=== PATIENT | female | born 1985 | race Asian ===

== ENCOUNTER 2023-08-09 05:40 | Inpatient (IN) ==
--- NOTE | 2023-07-30 10:35 | Anesthesiology Consultation ---
Date of Service July 30, 2023 Assessment & Plan (1) Encounter for pre-operative examination: - Per mechanical operator on 07/30/23: No known infectious disease contacts, current infectious disease symptoms in past 10 days or COVID positive test result in the past 30 days. Chart Review Chart Review: entry level initiated History Surgery Operation Date: 08/09/23 09:00 Proposed Procedures p Section (Delivery of Baby Through Abdominal Incision) - Clau Desai MD, FACOG Height/Weight Height: 5 ft 4 in Weight: 79.379 kg Allergies Allergy/AdvReac Type Severity Reaction Status Date / Time No Known Allergies Allergy Verified 07/30/23 10:07 Medications Home Medications Medication Instructions Recorded Confirmed Last Taken prenat.vits,jacqueline,[id number] 1 tab PO DAILY 06/05/22 07/30/23 07/07/23 cholecalciferol (vitamin D3) 1 tab PO UD 12/31/22 07/30/23 Unknown acetone (urine) test (Ketone Urine #50 ea 04/29/23 07/29/23 Unknown Test strips) blood sugar diagnostic (OneTouch #150 ea 04/29/23 07/29/23 Unknown Verio test strips) blood-glucose meter (OneTouch #1 ea 04/29/23 07/29/23 Unknown Verio Reflect Meter) lancets 33 gauge (OneTouch Delica #150 ea 04/29/23 07/29/23 Unknown Plus Lancet) aspirin 81 mg chewable tablet 81 mg PO DAILY 05/13/23 07/30/23 07/07/23 pen needle, diabetic 32 gauge x #100 ea 05/16/23 07/29/23 Unknown 5/32" (BD Ultra-Fine Lanie Pen Needle) insulin aspart U-100 100 unit/mL See Rx Instructions subcut TID #15 05/27/23 07/30/23 Unknown (3 mL) subcutaneous pen (Novolog mL FlexPen U-100 Insulin aspart) calcium carbonate [Tums] 1 tab PO DIRECTED PRN Acid 06/10/23 07/30/23 Unknown Reflux famotidine [Pepcid] 1 tab PO DAILY PRN Acid Reflux 06/10/23 07/30/23 Unknown ferrous sulfate [Iron (ferrous 25 mg PO UD 06/10/23 07/30/23 Unknown sulfate)] insulin NPH isoph U-100 human 100 20 unit subcut QPM 07/01/23 07/30/23 07/06/23 unit/mL (3 mL) subcutaneous pen (Novolin N FlexPen) Past Medical History Medical History Acid reflux Dichorionic diamniotic twin Gestational diabetes Past Family History Family History Mother Premature labor Other Anemia Diabetes Gestational diabetes Heart disease No family history of adverse response to anesthesia Denies family history of Ovarian cancer Breast cancer Colorectal cancer Past Surgical History Surgical History No history of previous surgery S/P dilation and curettage Social History Smoking Status: Never smoker Do You Dip or Chew Tobacco: No Hx Alcohol Use: No Hx Substance Use: No substance use type: does not use
--- NOTE | 2023-08-08 17:55 | History & Physical Report ---
Date of Service August 08, 2023 Assessment & Plan (1) Dichorionic diamniotic twin : Plan: Di/DI twin gestation at 38 5/7 weeks presents for primary LTCS for breech presentation Twin A the procedure and it's risks were reviewed with the patient and her and all questions were answered to their satisfaction. History of Present Illness Primary Care Provider: NO PCP Patient is a 37 yo female EDC 08/17/23 with Di/Di twin gestation who presents at 38 5/7 weeks for primary LTCS because of breech presentation in both twins. complicated as well by AMA status and GDM on insulin. testing has been reassuring. Allergies Allergy/AdvReac Type Severity Reaction Status Date / Time No Known Allergies Allergy Verified 08/08/23 11:07 Home Medications Medication Instructions Recorded Confirmed Type prenat.vits,jacqueline,[id number] 1 tab PO DAILY 06/05/22 08/08/23 History cholecalciferol (vitamin D3) 1 tab PO UD 12/31/22 08/08/23 History acetone (urine) test (Ketone Urine #50 ea 04/29/23 08/08/23 Rx Test strips) blood sugar diagnostic (OneTouch #150 ea 04/29/23 08/08/23 Rx Verio test strips) blood-glucose meter (OneTouch #1 ea 04/29/23 08/08/23 Rx Verio Reflect Meter) lancets 33 gauge (OneTouch Delica #150 ea 04/29/23 08/08/23 Rx Plus Lancet) aspirin 81 mg chewable tablet 81 mg PO DAILY 05/13/23 08/08/23 History pen needle, diabetic 32 gauge x #100 ea 05/16/23 08/08/23 Rx 32" (BD Ultra-Fine Lanie Pen Needle) calcium carbonate [Tums] 1 tab PO DIRECTED PRN Acid 06/10/23 08/08/23 History Reflux famotidine [Pepcid] 1 tab PO DAILY PRN Acid Reflux 06/10/23 08/08/23 History ferrous sulfate [Iron (ferrous 25 mg PO UD 06/10/23 08/08/23 History sulfate)] insulin NPH isoph U-100 human 100 15 unit subcut QPM 07/01/23 08/08/23 History unit/mL (3 mL) subcutaneous pen (Novolin N FlexPen) Patient History Medical History Acid reflux Dichorionic diamniotic twin Gestational diabetes Surgical History No history of previous surgery S/P dilation and curettage Family History Mother Premature labor Other Anemia Diabetes Gestational diabetes Heart disease No family history of adverse response to anesthesia Denies family history of Ovarian cancer Breast cancer Colorectal cancer Social History Smoking Status: Never smoker Second Hand Exposure: No; Do You Dip or Chew Tobacco: No; Hx Alcohol Use: No Hx Substance Use: No Preferred Language: [place] Communication Ability: Effective Visual Impairment: No Limitations Steel Erecting Pusher Required: No Beliefs That Will Affect Care: None marital status: marital status details: Itz ([phone] Current Living Situation: Spouse Current Living Situation Comment: lives with spouse, no pets. current occupational status: employed current occupation: Post researcher at [employer] Feels Safe at Home: Yes Assistive Devices: Glasses Review of Systems All systems reviewed & are unremarkable except as noted in HPI & below Physical Exam Constitutional: WD/WN, vitals as above Respiratory: normal respiratory effort, lungs clear to auscultation Cardiovascular: RRR, no murmur, no edema Psychiatric: A+Ox3, euthymic affect Genitourinary: OB Exam Abdomen: + fundal height (42) and + breech (twin A breech/ twin B transverse head RUQ) OB Exam Monitor Tracing: + external FHT monitor used, + external uterine monitor used, + category I and + normal FHT variability Coding Level of Care Code None Diagnoses Dichorionic diamniotic twin O30.049
[2023-08-09] MEDS: LACTATED RINGER'S 1,000 ML IV SCH ×2 (06:20→09:52)
[2023-08-09 06:34] LABS: Basophils # (auto) 0.03 K/uL (0.00-0.20); Basophils % (auto) 0.5 %; Eosinophils # (auto) 0.07 K/uL (0.00-0.50); Eosinophils % (auto) 1.1 %; Hematocrit (blood only) 36.1 % (37.0-47.0); Immature Granulocytes # (auto) 0.02 K/uL (0.01-0.20); Immature Granulocytes % (auto) 0.3 %; Lymphocytes # (auto) 2.41 K/uL (1.20-3.40); Lymphocytes % (auto) 37.5 %; Mean Corpuscular Hemoglobin 32.3 pg (25.0-34.0); Mean Corpuscular Volume 89.6 fL (80.0-100.0); Mean Platelet Volume 11.7 fL (9.4-12.4); Monocytes # (auto) 0.51 K/uL (0.11-0.59); Monocytes % (auto) 7.9 %; Neutrophils # (auto) 3.38 K/uL (1.40-6.50); Neutrophils % (auto) 52.7 %; Platelet Count 202 K/uL (130-400); RDW Coefficient of Variation 12.9 % (11.5-14.5); RDW Standard Deviation 42.2 fL (36.4-46.3); Red Blood Count 4.03 M/uL (4.20-5.40); White Blood Count 6.42 K/ul (4.8-10.8)
[2023-08-09] MEDS: CITRIC ACID/SODIUM CITRATE 15 ML UDC PO SCH (07:19)
--- NOTE | 2023-08-09 07:21 | History & Physical Bridge Note ---
Date of Service August 09, 2023 History & Physical Bridge Note I have examined the patient, reviewed the History & Physical and in the interval since the performance of the History & Physical I have noted the following changes of clinical significance: no changes noted
[2023-08-09] MEDS ORDERED: MoRPHine SULFATE PF 1 MG/ML 10 ML AMP/VIAL ONE (07:24)
[2023-08-09] MEDS: ceFAZolin 2000MG 2,000 MG/15 ML SYR IV SCH (07:37)
[2023-08-09] MEDS ORDERED: ONDANSETRON INJ 2 MG/ML 2 ML VIAL ONE (08:10)
[2023-08-09] MEDS ORDERED: OXYTOCIN 10 UNITS/ML VIAL ONE ×3 (08:10→19:12)
[2023-08-09] MEDS ORDERED: PHENYLEPHRINE 100MCG/ML 10ML SYR IV ONE ×3 (08:10→19:12)
[2023-08-09] MEDS ORDERED: KETOROLAC 30 MG/ML VIAL ONE (08:32)
[2023-08-09] MEDS ORDERED: NALBUPHINE HCL 5 MG in SYRINGE 0 ML IV PRN (08:41)
[2023-08-09] MEDS ORDERED: MoRPHine SULFATE 2 MG/ML CARP IV PRN (08:41)
[2023-08-09] MEDS ORDERED: NALOXONE HCL 0.4 MG/1 ML VIAL/CARP IV PRN (08:41)
[2023-08-09] MEDS ORDERED: diphenhydrAMINE 50 MG/ML VIAL IV PRN (08:41)
[2023-08-09] MEDS ORDERED: ePHEDrine sulfate 50 MG/ML AMP IV PRN (08:41)
[2023-08-09] MEDS ORDERED: LACTATED RINGER'S 500 ML IV PRN (08:41)
[2023-08-09] MEDS ORDERED: KETOROLAC 30 MG/ML VIAL IV PRN (08:41)
[2023-08-09] MEDS ORDERED: MEPERIDINE HCL 25 MG/ML CARP/VIAL IV PRN (08:41)
[2023-08-09] MEDS ORDERED: NALOXONE HCL 0.08 MG in SYRINGE 1.8 ML IV PRN (08:41)
[2023-08-09] MEDS ORDERED: NALOXONE HCL 1 MG in SODIUM CHLORIDE 0.9% 1,000 ML IV PRN (08:41)
[2023-08-09] MEDS ORDERED: DC INTRASPINAL MORPHINE SCH (08:45)
[2023-08-09] MEDS ORDERED: NO NARCOTICS OR SEDATIVES SCH (08:45)
--- NOTE | 2023-08-09 08:51 | Post Operative Brief Note ---
PG Immediate Post Op with CF Date of Surgery August 09, 2023 Pre & Post Diagnosis Operation Date: 08/09/23 07:30 <No data on this case meets the specified criteria> di/di twin at 38 + weeks breech presentation twin A I identified the patient and participated in the time-out.: Yes Procedure Operation Date: 08/09/23 07:30 <No data on this case meets the specified criteria> primary low transverse section Surgeon Clau Desai MD, FACOG Gi Asst Sravani Lucero MD, Nehemiah Fritz MD Estimated Blood Loss 1,150 (QBL) Findings Consistent with Post-Op Diagnosis gravid twin uterus consistent with term , bilateral ovaries and tubes are normal Specimens Specimen Description: twin placenta Drains Son Catheter (to straight drainage- clear urine at end of the case) Anesthesia Type Spinal Complications none Disposition Accompanied Patient To Recovery: Yes Disposition: L&D
--- NOTE | 2023-08-09 09:19 | Operative Report ---
PG Post Operative Report Pre & Post Diagnosis Operation Date: 08/09/23 0 Pre-op diagnosis:DI/DI twin gestation at 38+weeks Twin A breech presentation Twin B transverse presentation Post-op diagnosis: same plus delivery of 2 viable male infants Twin A Apgars 8/9 Twin B Apgars 9/9 I identified the patient and participated in the time-out.: Yes Procedure Operation Date: 08/09/23 07:30 Primary low transverse section Surgeon Clau Desai MD, FACOG Animal Humane Agent Supervisor Sravani Lucero MD, Nehemiah Fritz MD Estimated Blood Loss 1,150 (QBL) Findings Consistent with Post-Op Diagnosis Gravid uterus consistent with twin at term, bilateral lateral ovaries will be tubes are also grossly normal. Specimens Di Di twin placenta for exam Drains Son catheter to straight drainage. Clear urine at the end of the case. Anesthesia Type Spinal Complications none Disposition Accompanied Patient To Recovery: Yes Disposition: L&D Indications Di Di twin at 38 5/7 weeks Twin A breech presentation Twin B transverse presentation Description of Procedure After the patient received adequate subarachnoid block she was prepped and draped in usual sterile fashion. Low transverse skin incision incision was made with the scalpel and carried to the fascia with the same scalpel. The fascial incision was then extended with Phillips scissors and the edges were grasped with Frederick clamps. The underlying rectus muscles bluntly sharply dissected off of the overlying fascia. The rectus muscles were already , and the underlying peritoneum was elevated and entered sharply. The bladder was then taken down off the anterior surface of the uterus and placed behind the bladder blade the lower uterine segment was entered with a scalpel and extended within cephalad and caudad stretching of the incision. Membranes for twin A were ruptured for copious amount of clear fluid. The was delivered from the double footling breech presentation along with moderate fundal pressure. The first male delivered easily and was vigorous and crying upon arrival. Cord was clamped and cut and the was handed off to Dr. Abdalla who was in attendance as big data admin. Membranes were ruptured for twin B -the fluid was clear. The infant was now in vertex presentation and with moderate fundal pressure was delivered easily. He was also vigorous crying and moving all 4 limbs. Cord was clamped and cut and twin B was also handed off to Dr. Abdalla. The placenta was were then expressed intact. Both cords were 3 vessels. The uterus was then exteriorized and covered with a clean lap sponge The uterine cavity was then explored and found to be free of any placental tissue or membranes. bleeding was controlled with dilute Pitocin and fundal massage. The uterus was then closed in 2 layers in a running locking imbricating manner with 0 Monocryl. Hemostasis was noted to be excellent. The posterior cul-de-sac was suctioned for a few clots. The decision was examined once more and continue to have excellent hemostasis. The uterus was then placed back inside the abdominal cavity gutters were explored and were found to be free of any clot or fluid. The rectus muscle were then brought together in the midline with individual stitches of 0 Monocryl. The fascia was closed in a running fashion with 0 Vicryl. After irrigating the subcutaneous layer, the skin edges were reapproximated in a subcuticular fashion with 4-0 Vicryl. Mother and infant's were doing well post delivery. I attest to the content of the Intraoperative Record and any orders documented therein. Any exceptions are noted below. OB Procedure Charges 52302
[2023-08-09] MEDS ORDERED: SODIUM CHLORIDE 0.9% 250 ML IV PRN ×5 (09:20→20:38)
[2023-08-09] MEDS ORDERED: PROMETHAZINE HCL 25 MG in SODIUM CHLORIDE 0.9% 50 ML IV PRN (09:31)
[2023-08-09] MEDS ORDERED: ONDANSETRON INJ 2 MG/ML 2 ML VIAL IV PRN (09:31)
[2023-08-09] MEDS ORDERED: BENZOCAINE 20% SPRY 85 APPLN/85 GM CAN EXT PRN (09:31)
[2023-08-09] MEDS ORDERED: HYDROCORTISONE ACETATE 25 MG SUPP PR PRN (09:31)
[2023-08-09] MEDS ORDERED: SENNA 8.6 MG TAB PO PRN (09:31)
[2023-08-09] MEDS ORDERED: MAGNESIUM HYDROXIDE SUSP 30 ML UDC PO PRN (09:31)
[2023-08-09] MEDS: MoRPHine SULFATE PF 1 MG/ML 10 ML AMP/VIAL INT SPINAL ONE (09:52)
[2023-08-09] MEDS: SODIUM CHLORIDE 0.9% 1,000 ML IV SCH (09:52)
[2023-08-09] MEDS: DIPHTHER/TETAN/PERTUS Vaccine (Tdap, Adol/Adult) 0.5mL IM ONE (09:52)
[2023-08-09 09:56] LABS: Basophils # (auto) 0.02 K/uL (0.00-0.20); Basophils % (auto) 0.2 %; Eosinophils # (auto) 0.05 K/uL (0.00-0.50); Eosinophils % (auto) 0.6 %; Hemoglobin 9.9 g/dl (12.0-16.0); Immature Granulocytes # (auto) 0.05 K/uL (0.01-0.20); Immature Granulocytes % (auto) 0.6 %; Lymphocytes # (auto) 1.83 K/uL (1.20-3.40); Lymphocytes % (auto) 20.2 %; Mean Corpuscular Hemoglobin 32.7 pg (25.0-34.0); Mean Corpuscular Hgb Conc 35.4 g/dL (32.0-36.0); Mean Corpuscular Volume 92.4 fL (80.0-100.0); Mean Platelet Volume 11.8 fL (9.4-12.4); Monocytes # (auto) 0.53 K/uL (0.11-0.59); Monocytes % (auto) 5.8 %; Neutrophils # (auto) 6.59 K/uL (1.40-6.50); Neutrophils % (auto) 72.6 %; Platelet Count 156 K/uL (130-400); RDW Coefficient of Variation 13.2 % (11.5-14.5); Red Blood Count 3.03 M/uL (4.20-5.40); White Blood Count 9.07 K/ul (4.8-10.8)
[2023-08-09] MEDS: OXYTOCIN 20 UNITS/LR 1,002 ML IV SCH (12:13)
[2023-08-09] MEDS: ACETAMINOPHEN 1,000 MG/100 ML VIAL IV PRN (13:39)
[2023-08-09] MEDS: ONDANSETRON INJ 2 MG/ML 2 ML VIAL IV PRN (13:39)
[2023-08-09] MEDS: miSOPROStoL 200 MCG TAB PR ONE (13:42)
[2023-08-09] MEDS: SIMETHICONE 80 MG CHEW PO SCH (14:12)
--- NOTE | 2023-08-09 15:55 | Anesthesiology Progress Note ---
Date of Service August 09, 2023 Anesthesia Post Procedure Vital Signs Vital Signs: Temp Pulse Resp BP Pulse Ox 08/09/23 15:29 126 H 100 08/09/23 15:21 123 H 99 08/09/23 15:16 145 H 100 08/09/23 15:11 129 H 99 08/09/23 15:08 131 H 90/60 L 08/09/23 15:06 144 H 100 08/09/23 15:01 144 H 99 08/09/23 14:56 138 H 97 08/09/23 14:51 140 H 99 08/09/23 14:46 141 H 99 08/09/23 14:41 147 H 100 08/09/23 14:36 125 H 100 08/09/23 14:31 128 H 100 08/09/23 14:26 127 H 100 08/09/23 14:21 126 H 100 08/09/23 14:16 127 H 99 08/09/23 14:11 134 H 99 08/09/23 14:08 122 H 117/81 08/09/23 14:06 132 H 100 08/09/23 14:01 122 H 100 08/09/23 13:56 98 08/09/23 13:56 116 H 08/09/23 13:56 113 H 93 08/09/23 13:51 117 H 99 08/09/23 13:46 90 08/09/23 13:46 116 H 08/09/23 13:46 118 H 92 08/09/23 13:41 127 H 98 08/09/23 13:38 121 H 99/62 L 08/09/23 13:36 119 H 98 08/09/23 13:32 123 H 106/69 08/09/23 13:31 125 H 97 08/09/23 13:26 115 H 97 08/09/23 13:21 129 H 99 08/09/23 13:16 116 H 96 08/09/23 13:11 118 H 99 08/09/23 13:09 111 H 98/61 L 08/09/23 13:06 117 H 97 08/09/23 13:01 121 H 98 08/09/23 12:56 122 H 99 08/09/23 12:51 126 H 100 08/09/23 12:46 123 H 98 08/09/23 12:41 123 H 99 08/09/23 12:38 118 H 128/79 05 12:36 131 H 98 08/09/23 12:31 132 H 98 08/09/23 12:26 135 H 99 08/09/23 12:21 135 H 98 08/09/23 12:16 134 H 98 08/09/23 12:11 133 H 97 08/09/23 12:09 148 H 124/86 08/09/23 12:06 136 H 97 08/09/23 12:01 149 H 99 08/09/23 11:56 154 H 97 08/09/23 11:51 142 H 99 08/09/23 11:46 157 H 99 08/09/23 11:41 144 H 100 08/09/23 11:36 127 H 99 08/09/23 11:31 142 H 98 08/09/23 11:26 117 H 99 08/09/23 11:21 114 H 100 08/09/23 11:16 113 H 99 08/09/23 11:11 101 H 100 08/09/23 11:08 93 H 140/71 08/09/23 11:06 36.8 C 20 08/09/23 11:06 104 H 100 08/09/23 11:01 103 H 100 08/09/23 10:56 96 H 100 08/09/23 10:51 120 H 98 08/09/23 10:46 105 H 100 08/09/23 10:41 97 H 99 08/09/23 10:37 101 H 139/82 08/09/23 10:36 18 08/09/23 10:36 108 H 99 08/09/23 10:31 92 H 98 08/09/23 10:26 100 H 150/83 H 98 08/09/23 10:21 97 H 99 08/09/23 10:17 116 H 133/64 08/09/23 10:16 117 H 99 08/09/23 10:11 88 100 08/09/23 10:07 108 H 124/68 08/09/23 10:06 36.7 C 18 08/09/23 10:06 110 H 100 08/09/23 10:01 105 H 99 08/09/23 09:57 114 H 137/88 05 09:56 18 08/09/23 09:56 113 H 99 08/09/23 09:51 103 H 100 08/09/23 09:47 87 122/77 08/09/23 09:46 18 08/09/23 09:46 89 99 08/09/23 09:41 85 97 08/09/23 09:38 68 108/60 08/09/23 09:36 20 08/09/23 09:36 75 97 08/09/23 09:31 72 97 08/09/23 09:26 18 08/09/23 09:26 72 113/64 97 08/09/23 09:21 88 98 08/09/23 09:16 20 08/09/23 09:16 89 101/62 97 08/09/23 09:06 20 08/09/23 09:06 80 92/54 L 08/09/23 09:02 92 H 100 08/09/23 08:57 87 100 08/09/23 08:56 36.4 C L 18 08/09/23 08:56 90 97/60 L 08/09/23 06:25 36.7 C 18 08/09/23 06:04 76 134/87 Pain Intensity Abdomen: Pain Intensity: 2 Transfer of Care Handoff Completed per policy Notes Mental Status: alert / awake / arousable and participated in evaluation Nausea / Vomiting: adequately controlled Pain: adequately controlled Airway Patency, RR, SpO2: stable & adequate BP & HR: stable & adequate Hydration State: stable & adequate Neuraxial Anesthesia: was administered and sensory block is resolving Anesthetic Complications: no major complications apparent and Pt Satisfied with anesthetic care
[2023-08-09] MEDS: LACTATED RINGER'S 1,000 ML IV ONE (16:08)
[2023-08-09] MEDS: PROMETHAZINE HCL 6.25 MG in SODIUM CHLORIDE 0.9% 50 ML IV PRN (17:36)
[2023-08-09] MEDS ORDERED: OXYTOCIN 30 UNITS/500ML NSS IV ONE (17:56)
[2023-08-09] MEDS: TRANEXAMIC ACID / 0.7% NACL 1,000 MG/100 ML BAG IV STA ×2 (18:07→18:20)
[2023-08-09] MEDS ORDERED: TRANEXAMIC ACID 100 MG/ML 10 ML VIAL IV ONE (18:10)
[2023-08-09] MEDS: HYDROmorphone INJ 0.5 MG/0.5 ML SYR IV PRN (18:12)
[2023-08-09] MEDS ORDERED: fentaNYL citrate PF 100 MCG/2 ML VIAL ONE (18:30)
[2023-08-09] MEDS ORDERED: MIDAZOLAM HCL 1 MG/ML 2ML VIAL ONE (18:30)
--- NOTE | 2023-08-09 18:36 | Anesthesiology Consultation ---
Date of Service August 09, 2023 Assessment & Plan Chart Review Chart Review: Acceptable Risk for Surgery Consults Requested none ASA [id number] Proposed Anesthesia Anesthesia Type: MAC (w GETA if needed) History Surgery Operation Date: 08/09/23 07:30 Proposed Procedures p Section - Clau Desai MD, FACOG Height/Weight Height: 5 ft 4 in Weight: 79.379 kg Allergies Allergy/AdvReac Type Severity Reaction Status Date / Time No Known Allergies Allergy Verified 08/09/23 06:24 Medications Home Medications Medication Instructions Recorded Confirmed Last Taken prenat.vits,jacqueline,[id number] 1 tab PO DAILY 06/05/22 08/08/23 08/04/23 cholecalciferol (vitamin D3) 1 tab PO UD 12/31/22 08/08/23 08/03/23 acetone (urine) test (Ketone Urine #50 ea 04/29/23 08/08/23 Unknown Test strips) blood sugar diagnostic (OneTouch #150 ea 04/29/23 08/08/23 Unknown Verio test strips) blood-glucose meter (OneTouch #1 ea 04/29/23 08/08/23 Unknown Verio Reflect Meter) lancets 33 gauge (OneTouch Delica #150 ea 04/29/23 08/08/23 Unknown Plus Lancet) aspirin 81 mg chewable tablet 81 mg PO DAILY 05/13/23 08/09/23 08/08/23 pen needle, diabetic 32 gauge x #100 ea 05/16/23 08/08/23 Unknown 32" (BD Ultra-Fine Lanie Pen Needle) calcium carbonate [Tums] 1 tab PO DIRECTED PRN Acid 06/10/23 08/08/23 08/05/23 Reflux famotidine [Pepcid] 1 tab PO DAILY PRN Acid Reflux 06/10/23 08/08/23 08/05/23 ferrous sulfate [Iron (ferrous 25 mg PO UD 06/10/23 08/08/23 08/03/23 sulfate)] insulin NPH isoph U-100 human 100 15 unit subcut QPM 07/01/23 08/09/23 08/08/23 unit/mL (3 mL) subcutaneous pen (Novolin N FlexPen) Active Medications Generic Name Dose Route Start Last Admin Trade Name Freq PRN Reason Stop Dose Admin Hydromorphone HCl 0.25 mg 08/09/23 08:41 08/09/23 18:12 Hydromorphone Inj 0.5 Mg/0.5 Ml Syr IV 08/10/23 02:42 0.25 mg Q4H PRN Administration Breakthrough Surgical Pain Sodium Chloride 1,000 mls @ 15 mls/hr 08/09/23 08:45 08/09/23 09:52 Nss IV 08/10/23 02:41 Not Given .Q24H MICHEAL Promethazine HCl 6.25 mg/ 50.25 mls @ 204 mls/hr 08/09/23 08:41 08/09/23 17:36 Sodium Chloride IV 08/10/23 02:42 204 mls/hr Q6H PRN Administration Nausea And Vomiting Acetaminophen 1,000 mg in 100 mls @ 400 mls/hr 08/09/23 08:41 08/09/23 14:12 Ofirmev IV 08/12/23 08:40 Infused Q8H PRN Infusion Pain Lactated Ringer's 1,000 mls @ 125 mls/hr 08/09/23 09:31 08/09/23 14:12 Lr IV 09/08/23 09:30 Infused .Q8H MICHEAL Infusion Oxytocin/Lactated Ringer's 1,002 mls @ 125 mls/hr 08/09/23 09:31 08/09/23 12:13 Pitocin 20 Units/Lr IV 08/10/23 01:32 125 mls/hr .Q8H1M MICHEAL Administration Ondansetron HCl 4 mg 08/09/23 08:41 08/09/23 13:39 Ondansetron Inj 2 Mg/Ml 2 Ml Vial IV 08/10/23 02:42 4 mg Q6H PRN Administration Nausea And Vomiting Simethicone 80 mg 08/09/23 13:00 08/09/23 16:53 Simethicone 80 Mg Chew PO 09/08/23 12:59 Not Given DAILY@08,13,17,21 MICHEAL NPO Date Last Intake of Fluids: 08/09/23 Time Last Intake of Fluids: 04:50 Date Last Intake of Solids: 08/08/23 Time Last Intake of Solids: 22:30 Past Medical History Medical History Acid reflux Dichorionic diamniotic twin Gestational diabetes Past Family History Family History Mother Premature labor Other Anemia Diabetes Gestational diabetes Heart disease No family history of adverse response to anesthesia Denies family history of Ovarian cancer Breast cancer Colorectal cancer Past Surgical History Surgical History No history of previous surgery S/P dilation and curettage Social History Smoking Status: Never smoker Do You Dip or Chew Tobacco: No Hx Alcohol Use: No Hx Substance Use: No substance use type: does not use Physical Exam Vital Signs Last Vital Signs Temp 36.9 C 08/09/23 18:23 Pulse 102 H 08/09/23 18:34 Resp 16 08/09/23 18:23 BP 126/83 08/09/23 18:34 Pulse Ox 100 08/09/23 18:34 Testing Laboratory Results Blood Type A Positive 08/09/23 06:08 Antibody Screen NEGATIVE 08/09/23 06:08
[2023-08-09 18:38] LABS: Hematocrit (blood only) 17.9 % (37.0-47.0); Hemoglobin 6.3 g/dl (12.0-16.0); Mean Corpuscular Hemoglobin 32.6 pg (25.0-34.0); Mean Corpuscular Hgb Conc 35.2 g/dL (32.0-36.0); Mean Corpuscular Volume 92.7 fL (80.0-100.0); RDW Coefficient of Variation 13.4 % (11.5-14.5); RDW Standard Deviation 44.4 fL (36.4-46.3); Red Blood Count 1.93 M/uL (4.20-5.40); White Blood Count 15.92 K/ul (4.8-10.8)
[2023-08-09 18:51] LABS: Basophils # (auto) 0.03 K/uL (0.00-0.20); Basophils % (auto) 0.2 %; Eosinophils # (auto) 0.01 K/uL (0.00-0.50); Eosinophils % (auto) 0.1 %; Immature Granulocytes # (auto) 0.11 K/uL (0.01-0.20); Immature Granulocytes % (auto) 0.7 %; Lymphocytes # (auto) 2.06 K/uL (1.20-3.40); Lymphocytes % (auto) 12.9 %; Mean Platelet Volume 11.3 fL (9.4-12.4); Monocytes % (auto) 6.3 %; Neutrophils # (auto) 12.71 K/uL (1.40-6.50); Neutrophils % (auto) 79.8 %; Platelet Count 69 K/uL (130-400); Platelet Estimate Decreased (Normal); Polychromasia 1+
[2023-08-09] MEDS ORDERED: ceFAZolin 330 MG/ML 1 GM VIAL ONE (19:01)
[2023-08-09] MEDS ORDERED: LIDOCAINE 2% MPF LOCAL 5 ML VIAL ONE (19:11)
[2023-08-09] MEDS ORDERED: PROPOFOL IV EMULSION 10 MG/ML 20 ML VIAL IV ONE (19:11)
[2023-08-09] MEDS ORDERED: SUCCINYLCHOLINE CHLORIDE 20 MG/ML 10 ML VIAL IV ONE (19:11)
--- NOTE | 2023-08-09 21:25 | Obstetrical Progress Note ---
Date of Service August 09, 2023 Assessment & Plan Admission and Anticipated Discharge Date Admission Date: August 09, 2023 Subjective I was called to see the patient because after transfer to the room she had increased vaginal bleeding and also passed a clot. Patient had a very tender fundus as well. She had been vomiting since arrival in the unit. Because of the increase in bleeding, she was brought back to the labor and delivery unit for further evaluation. More clot was expressed upon arrival in labor and delivery. Vaginal exam revealed the cervix to be 3 to 4 cm dilated with a large amount of clot in the cervix. This was removed digitally. Because of the suspicion that there was more clot in the uterus that could not be evacuated in the labor & delivery room, the decision was made to go back to the room for exam under anesthesia uterine curettage and placement of Jacqueline device. Dr. Quinn was called and patient was prepared for the OR. Procedure was reviewed with the patient and her & consents were signed. Hemoglobin prior to going back to the OR was 6.3. She was typed and crossed for 2 units and the first unit was begun on our way to the room. Results & Data Vital Signs (Past 12 Hours) Vital Signs Temp Pulse Resp BP BP Pulse Ox O2 Del Method 08/09/23 21:17 100 08/09/23 21:17 77 08/09/23 21:12 100 08/09/23 21:12 77 08/09/23 21:08 78 08/09/23 21:08 144/92 H 08/09/23 21:07 100 08/09/23 21:07 80 08/09/23 21:02 100 08/09/23 21:02 86 08/09/23 20:57 100 08/09/23 20:57 80 08/09/23 20:53 81 08/09/23 20:53 138/89 08/09/23 20:52 100 08/09/23 20:52 81 08/09/23 20:51 98.8 F 78 16 138/89 100 08/09/23 20:51 98.8 F 78 16 138/89 100 08/09/23 20:51 98.8 F 16 08/09/23 20:47 100 08/09/23 20:47 81 08/09/23 20:42 100 08/09/23 20:42 82 05 20:39 74 08/09/23 20:39 150/83 H 08/09/23 20:37 100 08/09/23 20:37 77 08/09/23 20:36 98.8 F 76 14 150/83 H 100 08/09/23 20:36 98.8 F 14 08/09/23 20:32 100 08/09/23 20:32 80 08/09/23 20:27 100 08/09/23 20:27 82 08/09/23 20:23 78 05 20:23 144/100 H 08/09/23 20:22 100 08/09/23 20:22 84 08/09/23 20:21 98.8 F 88 16 144/100 H 100 08/09/23 20:21 98.8 F 16 08/09/23 20:17 100 08/09/23 20:17 79 08/09/23 20:12 100 08/09/23 20:12 78 08/09/23 20:07 100 08/09/23 20:07 78 08/09/23 20:07 152/92 H 08/09/23 20:06 98.8 F 80 16 152/92 H 100 08/09/23 20:06 98.8 F 78 16 152/92 H 100 08/09/23 20:02 100 08/09/23 20:02 83 08/09/23 19:57 100 08/09/23 19:57 89 08/09/23 19:56 81 08/09/23 19:56 139/84 08/09/23 19:52 100 08/09/23 19:52 88 08/09/23 19:52 111 H 08/09/23 19:52 159/96 H 08/09/23 19:51 97.7 F 82 14 159/96 H 100 08/09/23 19:51 97.7 F 14 08/09/23 19:51 97.7 F 14 100 Oxymask 08/09/23 19:47 100 08/09/23 19:47 81 08/09/23 19:43 78 08/09/23 19:43 152/89 H 08/09/23 19:42 100 08/09/23 19:42 78 08/09/23 19:37 100 08/09/23 19:37 86 05/03/24 19:35 97.7 F 14 08/09/23 19:32 100 08/09/23 19:32 84 08/09/23 19:32 135/86 08/09/23 18:45 98.1 F 18 08/09/23 18:39 100 08/09/23 18:39 109 H 08/09/23 18:39 101 H 08/09/23 18:39 120/70 08/09/23 18:34 100 08/09/23 18:34 102 H 08/09/23 18:34 103 H 08/09/23 18:34 126/83 08/09/23 18:30 98.2 F 16 08/09/23 18:29 100 08/09/23 18:29 111 H 08/09/23 18:29 123/79 08/09/23 18:24 100 08/09/23 18:24 105 H 08/09/23 18:24 147/81 H 08/09/23 18:23 98.4 F 104 H 16 167/84 H 100 08/09/23 18:19 100 08/09/23 18:19 120 H 08/09/23 18:19 167/84 H 08/09/23 18:16 80 L 08/09/23 18:16 116 H 08/09/23 18:14 100 08/09/23 18:14 108 H 08/09/23 18:14 105 H 08/09/23 18:14 121/81 08/09/23 18:09 100 08/09/23 18:09 112 H 08/09/23 16:10 16 100 08/09/23 16:10 Room Air 08/09/23 16:10 97.9 F 16 117/76 99 Room Air 08/09/23 15:30 98.1 F 08/09/23 15:29 126 H 100 08/09/23 15:21 123 H 99 08/09/23 15:16 145 H 100 08/09/23 15:11 129 H 99 08/09/23 15:08 131 H 90/60 L 08/09/23 15:06 144 H 100 08/09/23 15:01 144 H 99 08/09/23 14:56 138 H 97 08/09/23 14:51 140 H 99 08/09/23 14:46 141 H 99 08/09/23 14:41 147 H 100 05 14:36 125 H 100 08/09/23 14:31 128 H 100 05 14:26 127 H 100 05 14:21 126 H 100 08/09/23 14:16 127 H 99 05 14:11 134 H 99 05 14:08 122 H 117/81 05 14:06 132 H 100 08/09/23 14:01 122 H 100 08/09/23 13:56 98 08/09/23 13:56 116 H 05 13:56 113 H 93 08/09/23 13:51 117 H 99 08/09/23 13:46 90 08/09/23 13:46 116 H 08/09/23 13:46 118 H 92 08/09/23 13:41 127 H 98 08/09/23 13:38 121 H 99/62 L 08/09/23 13:36 119 H 98 08/09/23 13:32 123 H 106/69 08/09/23 13:31 125 H 97 08/09/23 13:26 115 H 97 08/09/23 13:21 129 H 99 08/09/23 13:16 116 H 96 08/09/23 13:11 118 H 99 08/09/23 13:09 111 H 98/61 L 08/09/23 13:06 117 H 97 08/09/23 13:01 121 H 98 08/09/23 12:56 122 H 99 08/09/23 12:51 126 H 100 08/09/23 12:46 123 H 98 05 12:41 123 H 99 08/09/23 12:38 118 H 128/79 05 12:36 131 H 98 05 12:31 132 H 98 08/09/23 12:26 135 H 99 08/09/23 12:21 135 H 98 08/09/23 12:16 134 H 98 08/09/23 12:11 133 H 97 08/09/23 12:09 148 H 124/86 08/09/23 12:06 136 H 97 08/09/23 12:01 149 H 99 08/09/23 11:56 154 H 97 08/09/23 11:51 142 H 99 05/24 11:46 157 H 99 05 11:41 144 H 100 05/06/29 11:36 127 H 99 05 11:31 142 H 98 05 11:26 117 H 99 05 11:21 114 H 100 05 11:16 113 H 99 05 11:11 101 H 100 05 11:08 93 H 140/71 05 11:06 98.2 F 20 08/09/23 11:06 104 H 100 05 11:01 103 H 100 05 10:56 96 H 100 05 10:51 120 H 98 08/09/23 10:46 105 H 100 08/09/23 10:41 97 H 99 05 10:37 101 H 139/82 05/06/29 10:36 18 05 10:36 108 H 99 05 10:31 92 H 98 05 10:26 100 H 150/83 H 98 08/09/23 10:21 97 H 99 05/06/29 10:17 116 H 133/64 05 10:16 117 H 99 08/09/23 10:11 88 100 05 10:07 108 H 124/68 05 10:06 98.1 F 18 08/09/23 10:06 110 H 100 08/09/23 10:01 105 H 99 08/09/23 09:57 114 H 137/88 05 09:56 18 05 09:56 113 H 99 08/09/23 09:51 103 H 100 05 09:47 87 122/77 05 09:46 18 05 09:46 89 99 05 09:41 85 97 05 09:38 68 108/60 05 09:36 20 08/09/23 09:36 75 97 05/03 09:31 72 97 05/03 09:26 18 05 09:26 72 113/64 97 05 09:21 88 98 O2 Flow Rate 05/03/24 21:17 08/09/23 21:17 08/09/23 21:12 08/09/23 21:12 08/09/23 21:08 08/09/23 21:08 08/09/23 21:07 08/09/23 21:07 08/09/23 21:02 08/09/23 21:02 08/09/23 20:57 08/09/23 20:57 08/09/23 20:53 08/09/23 20:53 08/09/23 20:52 08/09/23 20:52 08/09/23 20:51 10 08/09/23 20:51 08/09/23 20:51 08/09/23 20:47 08/09/23 20:47 08/09/23 20:42 08/09/23 20:42 08/09/23 20:39 08/09/23 20:39 08/09/23 20:37 08/09/23 20:37 08/09/23 20:36 10 08/09/23 20:36 08/09/23 20:32 08/09/23 20:32 08/09/23 20:27 08/09/23 20:27 08/09/23 20:23 08/09/23 20:23 08/09/23 20:22 08/09/23 20:22 08/09/23 20:21 10 08/09/23 20:21 08/09/23 20:17 08/09/23 20:17 08/09/23 20:12 08/09/23 20:12 08/09/23 20:07 08/09/23 20:07 08/09/23 20:07 08/09/23 20:06 10 08/09/23 20:06 08/09/23 20:02 08/09/23 20:02 08/09/23 19:57 08/09/23 19:57 08/09/23 19:56 08/09/23 19:56 08/09/23 19:52 08/09/23 19:52 08/09/23 19:52 08/09/23 19:52 08/09/23 19:51 08/09/23 19:51 08/09/23 19:51 10 08/09/23 19:47 08/09/23 19:47 08/09/23 19:43 08/09/23 19:43 08/09/23 19:42 08/09/23 19:42 08/09/23 19:37 08/09/23 19:37 08/09/23 19:35 08/09/23 19:32 08/09/23 19:32 08/09/23 19:32 08/09/23 18:45 08/09/23 18:39 08/09/23 18:39 08/09/23 18:39 08/09/23 18:39 08/09/23 18:34 08/09/23 18:34 08/09/23 18:34 08/09/23 18:34 08/09/23 18:30 08/09/23 18:29 08/09/23 18:29 08/09/23 18:29 08/09/23 18:24 08/09/23 18:24 08/09/23 18:24 08/09/23 18:23 08/09/23 18:19 08/09/23 18:19 08/09/23 18:19 08/09/23 18:16 08/09/23 18:16 08/09/23 18:14 08/09/23 18:14 08/09/23 18:14 08/09/23 18:14 08/09/23 18:09 08/09/23 18:09 08/09/23 16:10 08/09/23 16:10 08/09/23 16:10 08/09/23 15:30 08/09/23 15:29 08/09/23 15:21 08/09/23 15:16 08/09/23 15:11 08/09/23 15:08 08/09/23 15:06 08/09/23 15:01 08/09/23 14:56 08/09/23 14:51 08/09/23 14:46 08/09/23 14:41 08/09/23 14:36 08/09/23 14:31 08/09/23 14:26 08/09/23 14:21 08/09/23 14:16 08/09/23 14:11 08/09/23 14:08 08/09/23 14:06 08/09/23 14:01 08/09/23 13:56 08/09/23 13:56 08/09/23 13:56 08/09/23 13:51 08/09/23 13:46 08/09/23 13:46 08/09/23 13:46 08/09/23 13:41 08/09/23 13:38 08/09/23 13:36 08/09/23 13:32 08/09/23 13:31 08/09/23 13:26 08/09/23 13:21 08/09/23 13:16 08/09/23 13:11 08/09/23 13:09 08/09/23 13:06 08/09/23 13:01 08/09/23 12:56 08/09/23 12:51 08/09/23 12:46 08/09/23 12:41 08/09/23 12:38 08/09/23 12:36 08/09/23 12:31 08/09/23 12:26 08/09/23 12:21 08/09/23 12:16 08/09/23 12:11 08/09/23 12:09 08/09/23 12:06 08/09/23 12:01 08/09/23 11:56 08/09/23 11:51 08/09/23 11:46 08/09/23 11:41 08/09/23 11:36 08/09/23 11:31 08/09/23 11:26 08/09/23 11:21 08/09/23 11:16 08/09/23 11:11 08/09/23 11:08 08/09/23 11:06 08/09/23 11:06 08/09/23 11:01 08/09/23 10:56 08/09/23 10:51 08/09/23 10:46 08/09/23 10:41 08/09/23 10:37 08/09/23 10:36 08/09/23 10:36 08/09/23 10:31 08/09/23 10:26 08/09/23 10:21 08/09/23 10:17 08/09/23 10:16 08/09/23 10:11 08/09/23 10:07 08/09/23 10:06 08/09/23 10:06 08/09/23 10:01 08/09/23 09:57 08/09/23 09:56 08/09/23 09:56 08/09/23 09:51 08/09/23 09:47 08/09/23 09:46 08/09/23 09:46 08/09/23 09:41 08/09/23 09:38 08/09/23 09:36 08/09/23 09:36 08/09/23 09:31 08/09/23 09:26 08/09/23 09:26 08/09/23 09:21 PG Care Time/CCT Total # of Minutes Spent Total Time Spent with Patient: Total time spent is greater than 50% in coordination of care (as documented) at patient's floor/unit and/or counseling patient: Coding Level of Care Code 57135 SUB INP/OBS CARE 2/35MIN
--- NOTE | 2023-08-09 21:30 | Operative Report ---
PG Post Operative Report Pre & Post Diagnosis Operation Date: 08/09/23 18:45 Pre-Op Diagnosis: 1. hemorrhage 2. Uterine atony Post-Op Diagnosis: same as preop I identified the patient and participated in the time-out.: Yes Procedure Operation Date: 08/09/23 18:45 Actual Procedures p Exam under anesthesia, Curettage, ERNESTINE placement - Clau Desai MD, FACOG Surgeon Clau Desai MD, FACOG Proration Clerk Sravani Lucero MD, Nehemiah Fritz MD Estimated Blood Loss 411 Findings Consistent with Post-Op Diagnosis QBL including section QBL was 2333 cc. Specimens none Drains Son to straight drainage Anesthesia Type Spinal Complications none Disposition Accompanied Patient To Recovery: Yes Disposition: L&D Indications hemorrhage and uterine atony See prior OB progress note for further details. Description of Procedure At the patient received adequate general endotracheal anesthesia she was prepped and draped in usual fashion. A weighted speculum was placed in the vagina and the anterior lip of the cervix was grasped with a ring forcep. The banjo curette was used to curette the uterine cavity until there was good uterine cry throughout. Manual exploration could not be done because of the cervix not being dilated enough to do so. Once it was felt the clot had been evacuated, the ERNESTINE device was then placed into the uterine cavity. The cervical balloon was then inflated with 120 cc of sterile water. The suction was then placed at 80 mmHg. There appeared to be a good seal at that time. This point the case was terminated. Patient arrived back in the labor and delivery room for postoperative care in stable condition. I attest to the content of the Intraoperative Record and any orders documented therein. Any exceptions are noted below. OB Procedure Charges [id number] Bakri (ERNESTINE device) 82056 PP Curettage
[2023-08-09] MEDS: DOCUSATE SODIUM 100 MG CAP PO SCH (21:45)
--- NOTE | 2023-08-09 22:30 | Anesthesiology Progress Note ---
Date of Service August 09, 2023 Anesthesia Post Procedure Vital Signs Vital Signs: Temp Pulse Resp BP BP Pulse Ox O2 Del Method 08/09/23 22:27 100 08/09/23 22:27 83 08/09/23 22:22 100 08/09/23 22:22 82 08/09/23 22:22 133/84 08/09/23 22:20 36.6 C 79 15 134/84 100 08/09/23 22:20 80 08/09/23 22:20 134/84 08/09/23 22:17 100 08/09/23 22:17 82 08/09/23 22:12 100 08/09/23 22:12 79 08/09/23 22:07 100 08/09/23 22:07 78 08/09/23 22:07 131/84 08/09/23 22:02 100 08/09/23 22:02 81 08/09/23 21:57 100 08/09/23 21:57 80 08/09/23 21:52 100 08/09/23 21:52 80 08/09/23 21:51 36.6 C 80 13 100 08/09/23 21:51 80 08/09/23 21:51 145/89 H 08/09/23 21:50 36.6 C 80 14 131/84 100 08/09/23 21:50 36.6 C 79 13 145/89 H 100 08/09/23 21:47 100 08/09/23 21:47 82 08/09/23 21:42 100 08/09/23 21:42 84 08/09/23 21:37 100 08/09/23 21:37 82 08/09/23 21:36 82 08/09/23 21:36 143/82 H 08/09/23 21:35 36.7 C 81 15 143/82 H 100 08/09/23 21:32 100 08/09/23 21:32 79 08/09/23 21:27 100 08/09/23 21:27 78 08/09/23 21:23 82 08/09/23 21:23 141/82 H 08/09/23 21:22 100 08/09/23 21:22 77 08/09/23 21:21 36.7 C 83 14 141/82 H 100 08/09/23 21:21 36.7 C 77 14 100 08/09/23 21:17 100 08/09/23 21:17 77 08/09/23 21:12 100 08/09/23 21:12 77 08/09/23 21:08 78 08/09/23 21:08 144/92 H 08/09/23 21:07 100 08/09/23 21:07 80 08/09/23 21:02 100 08/09/23 21:02 86 08/09/23 20:57 100 08/09/23 20:57 80 08/09/23 20:53 81 08/09/23 20:53 138/89 08/09/23 20:52 100 08/09/23 20:52 81 05 20:51 37.1 C 78 16 138/89 100 08/09/23 20:51 37.1 C 78 16 138/89 100 08/09/23 20:51 37.1 C 16 08/09/23 20:47 100 08/09/23 20:47 81 08/09/23 20:42 100 08/09/23 20:42 82 08/09/23 20:39 74 08/09/23 20:39 150/83 H 08/09/23 20:37 100 08/09/23 20:37 77 08/09/23 20:36 37.1 C 76 14 150/83 H 100 08/09/23 20:36 37.1 C 14 08/09/23 20:32 100 08/09/23 20:32 80 08/09/23 20:27 100 08/09/23 20:27 82 08/09/23 20:23 78 08/09/23 20:23 144/100 H 08/09/23 20:22 100 08/09/23 20:22 84 08/09/23 20:21 37.1 C 88 16 144/100 H 100 08/09/23 20:21 37.1 C 16 08/09/23 20:17 100 08/09/23 20:17 79 08/09/23 20:12 100 08/09/23 20:12 78 08/09/23 20:07 100 08/09/23 20:07 78 08/09/23 20:07 152/92 H 08/09/23 20:06 37.1 C 80 16 152/92 H 100 08/09/23 20:06 37.1 C 78 16 152/92 H 100 08/09/23 20:02 100 08/09/23 20:02 83 08/09/23 19:57 100 08/09/23 19:57 89 08/09/23 19:56 81 08/09/23 19:56 139/84 08/09/23 19:52 100 08/09/23 19:52 88 08/09/23 19:52 111 H 08/09/23 19:52 159/96 H 08/09/23 19:51 36.5 C 82 14 159/96 H 100 08/09/23 19:51 36.5 C 14 08/09/23 19:51 36.5 C 14 100 Oxymask 08/09/23 19:47 100 08/09/23 19:47 81 08/09/23 19:43 78 08/09/23 19:43 152/89 H 08/09/23 19:42 100 08/09/23 19:42 78 08/09/23 19:37 100 08/09/23 19:37 86 08/09/23 19:35 36.5 C 14 08/09/23 19:32 100 08/09/23 19:32 84 08/09/23 19:32 135/86 08/09/23 18:45 36.7 C 18 08/09/23 18:39 100 08/09/23 18:39 109 H 08/09/23 18:39 101 H 08/09/23 18:39 120/70 08/09/23 18:34 100 08/09/23 18:34 102 H 08/09/23 18:34 103 H 08/09/23 18:34 126/83 08/09/23 18:30 36.8 C 16 08/09/23 18:29 100 08/09/23 18:29 111 H 08/09/23 18:29 123/79 08/09/23 18:24 100 08/09/23 18:24 105 H 08/09/23 18:24 147/81 H 08/09/23 18:23 36.9 C 104 H 16 167/84 H 100 08/09/23 18:19 100 08/09/23 18:19 120 H 08/09/23 18:19 167/84 H 08/09/23 18:16 80 L 08/09/23 18:16 116 H 08/09/23 18:14 100 08/09/23 18:14 108 H 08/09/23 18:14 105 H 08/09/23 18:14 121/81 08/09/23 18:09 100 08/09/23 18:09 112 H 08/09/23 16:10 16 100 08/09/23 16:10 Room Air 08/09/23 16:10 36.6 C 16 117/76 99 Room Air 08/09/23 15:30 36.7 C 08/09/23 15:29 126 H 100 08/09/23 15:21 123 H 99 08/09/23 15:16 145 H 100 08/09/23 15:11 129 H 99 08/09/23 15:08 131 H 90/60 L 08/09/23 15:06 144 H 100 08/09/23 15:01 144 H 99 08/09/23 14:56 138 H 97 08/09/23 14:51 140 H 99 08/09/23 14:46 141 H 99 08/09/23 14:41 147 H 100 08/09/23 14:36 125 H 100 08/09/23 14:31 128 H 100 08/09/23 14:26 127 H 100 08/09/23 14:21 126 H 100 08/09/23 14:16 127 H 99 08/09/23 14:11 134 H 99 08/09/23 14:08 122 H 117/81 08/09/23 14:06 132 H 100 08/09/23 14:01 122 H 100 08/09/23 13:56 98 08/09/23 13:56 116 H 08/09/23 13:56 113 H 93 08/09/23 13:51 117 H 99 08/09/23 13:46 90 08/09/23 13:46 116 H 08/09/23 13:46 118 H 92 08/09/23 13:41 127 H 98 08/09/23 13:38 121 H 99/62 L 08/09/23 13:36 119 H 98 08/09/23 13:32 123 H 106/69 08/09/23 13:31 125 H 97 08/09/23 13:26 115 H 97 08/09/23 13:21 129 H 99 08/09/23 13:16 116 H 96 05 13:11 118 H 99 05 13:09 111 H 98/61 L 08/09/23 13:06 117 H 97 08/09/23 13:01 121 H 98 08/09/23 12:56 122 H 99 08/09/23 12:51 126 H 100 08/09/23 12:46 123 H 98 08/09/23 12:41 123 H 99 08/09/23 12:38 118 H 128/79 05 12:36 131 H 98 08/09/23 12:31 132 H 98 08/09/23 12:26 135 H 99 08/09/23 12:21 135 H 98 08/09/23 12:16 134 H 98 08/09/23 12:11 133 H 97 08/09/23 12:09 148 H 124/86 08/09/23 12:06 136 H 97 08/09/23 12:01 149 H 99 08/09/23 11:56 154 H 97 08/09/23 11:51 142 H 99 08/09/23 11:46 157 H 99 08/09/23 11:41 144 H 100 08/09/23 11:36 127 H 99 08/09/23 11:31 142 H 98 08/09/23 11:26 117 H 99 08/09/23 11:21 114 H 100 08/09/23 11:16 113 H 99 08/09/23 11:11 101 H 100 08/09/23 11:08 93 H 140/71 08/09/23 11:06 36.8 C 20 08/09/23 11:06 104 H 100 05 11:01 103 H 100 08/09/23 10:56 96 H 100 08/09/23 10:51 120 H 98 08/09/23 10:46 105 H 100 05 10:41 97 H 99 08/09/23 10:37 101 H 139/82 05 10:36 18 08/09/23 10:36 108 H 99 05 10:31 92 H 98 08/09/23 10:26 100 H 150/83 H 98 08/09/23 10:21 97 H 99 05 10:17 116 H 133/64 08/09/23 10:16 117 H 99 08/09/23 10:11 88 100 08/09/23 10:07 108 H 124/68 08/09/23 10:06 36.7 C 18 08/09/23 10:06 110 H 100 08/09/23 10:01 105 H 99 08/09/23 09:57 114 H 137/88 08/09/23 09:56 18 08/09/23 09:56 113 H 99 08/09/23 09:51 103 H 100 08/09/23 09:47 87 122/77 08/09/23 09:46 18 08/09/23 09:46 89 99 08/09/23 09:41 85 97 08/09/23 09:38 68 108/60 08/09/23 09:36 20 08/09/23 09:36 75 97 08/09/23 09:31 72 97 08/09/23 09:26 18 08/09/23 09:26 72 113/64 97 08/09/23 09:21 88 98 08/09/23 09:16 20 08/09/23 09:16 89 101/62 97 08/09/23 09:06 20 08/09/23 09:06 80 92/54 L 08/09/23 09:02 92 H 100 08/09/23 08:57 87 100 08/09/23 08:56 36.4 C L 18 08/09/23 08:56 90 97/60 L 08/09/23 06:25 36.7 C 18 08/09/23 06:04 76 134/87 O2 Flow Rate 08/09/23 22:27 08/09/23 22:27 08/09/23 22:22 08/09/23 22:22 08/09/23 22:22 08/09/23 22:20 5 08/09/23 22:20 08/09/23 22:20 08/09/23 22:17 08/09/23 22:17 08/09/23 22:12 08/09/23 22:12 08/09/23 22:07 08/09/23 22:07 08/09/23 22:07 08/09/23 22:02 08/09/23 22:02 08/09/23 21:57 08/09/23 21:57 08/09/23 21:52 08/09/23 21:52 08/09/23 21:51 08/09/23 21:51 08/09/23 21:51 08/09/23 21:50 08/09/23 21:50 08/09/23 21:47 08/09/23 21:47 08/09/23 21:42 08/09/23 21:42 08/09/23 21:37 08/09/23 21:37 08/09/23 21:36 08/09/23 21:36 08/09/23 21:35 10 08/09/23 21:32 08/09/23 21:32 08/09/23 21:27 08/09/23 21:27 08/09/23 21:23 08/09/23 21:23 08/09/23 21:22 08/09/23 21:22 08/09/23 21:21 10 08/09/23 21:21 08/09/23 21:17 08/09/23 21:17 08/09/23 21:12 08/09/23 21:12 08/09/23 21:08 08/09/23 21:08 08/09/23 21:07 08/09/23 21:07 08/09/23 21:02 08/09/23 21:02 08/09/23 20:57 08/09/23 20:57 08/09/23 20:53 08/09/23 20:53 08/09/23 20:52 08/09/23 20:52 08/09/23 20:51 10 08/09/23 20:51 08/09/23 20:51 08/09/23 20:47 08/09/23 20:47 08/09/23 20:42 08/09/23 20:42 08/09/23 20:39 08/09/23 20:39 08/09/23 20:37 08/09/23 20:37 08/09/23 20:36 10 08/09/23 20:36 08/09/23 20:32 08/09/23 20:32 08/09/23 20:27 08/09/23 20:27 08/09/23 20:23 08/09/23 20:23 08/09/23 20:22 08/09/23 20:22 08/09/23 20:21 10 08/09/23 20:21 08/09/23 20:17 08/09/23 20:17 08/09/23 20:12 08/09/23 20:12 08/09/23 20:07 08/09/23 20:07 08/09/23 20:07 08/09/23 20:06 10 08/09/23 20:06 08/09/23 20:02 08/09/23 20:02 08/09/23 19:57 08/09/23 19:57 08/09/23 19:56 08/09/23 19:56 08/09/23 19:52 08/09/23 19:52 08/09/23 19:52 08/09/23 19:52 08/09/23 19:51 08/09/23 19:51 08/09/23 19:51 10 08/09/23 19:47 08/09/23 19:47 08/09/23 19:43 08/09/23 19:43 08/09/23 19:42 08/09/23 19:42 08/09/23 19:37 08/09/23 19:37 08/09/23 19:35 08/09/23 19:32 08/09/23 19:32 08/09/23 19:32 08/09/23 18:45 08/09/23 18:39 08/09/23 18:39 08/09/23 18:39 08/09/23 18:39 08/09/23 18:34 08/09/23 18:34 08/09/23 18:34 08/09/23 18:34 08/09/23 18:30 08/09/23 18:29 08/09/23 18:29 08/09/23 18:29 08/09/23 18:24 08/09/23 18:24 08/09/23 18:24 08/09/23 18:23 08/09/23 18:19 08/09/23 18:19 08/09/23 18:19 08/09/23 18:16 08/09/23 18:16 08/09/23 18:14 08/09/23 18:14 08/09/23 18:14 08/09/23 18:14 08/09/23 18:09 08/09/23 18:09 08/09/23 16:10 08/09/23 16:10 08/09/23 16:10 08/09/23 15:30 08/09/23 15:29 08/09/23 15:21 08/09/23 15:16 08/09/23 15:11 08/09/23 15:08 08/09/23 15:06 08/09/23 15:01 08/09/23 14:56 08/09/23 14:51 08/09/23 14:46 08/09/23 14:41 08/09/23 14:36 08/09/23 14:31 08/09/23 14:26 08/09/23 14:21 08/09/23 14:16 08/09/23 14:11 08/09/23 14:08 08/09/23 14:06 08/09/23 14:01 08/09/23 13:56 08/09/23 13:56 08/09/23 13:56 08/09/23 13:51 08/09/23 13:46 08/09/23 13:46 08/09/23 13:46 08/09/23 13:41 08/09/23 13:38 08/09/23 13:36 08/09/23 13:32 08/09/23 13:31 08/09/23 13:26 08/09/23 13:21 08/09/23 13:16 08/09/23 13:11 08/09/23 13:09 08/09/23 13:06 08/09/23 13:01 08/09/23 12:56 08/09/23 12:51 08/09/23 12:46 08/09/23 12:41 08/09/23 12:38 08/09/23 12:36 08/09/23 12:31 08/09/23 12:26 08/09/23 12:21 08/09/23 12:16 08/09/23 12:11 08/09/23 12:09 08/09/23 12:06 08/09/23 12:01 08/09/23 11:56 08/09/23 11:51 08/09/23 11:46 08/09/23 11:41 08/09/23 11:36 08/09/23 11:31 08/09/23 11:26 08/09/23 11:21 08/09/23 11:16 08/09/23 11:11 08/09/23 11:08 08/09/23 11:06 08/09/23 11:06 08/09/23 11:01 08/09/23 10:56 08/09/23 10:51 08/09/23 10:46 08/09/23 10:41 08/09/23 10:37 08/09/23 10:36 08/09/23 10:36 08/09/23 10:31 08/09/23 10:26 08/09/23 10:21 08/09/23 10:17 08/09/23 10:16 08/09/23 10:11 08/09/23 10:07 08/09/23 10:06 08/09/23 10:06 08/09/23 10:01 08/09/23 09:57 08/09/23 09:56 08/09/23 09:56 08/09/23 09:51 08/09/23 09:47 08/09/23 09:46 08/09/23 09:46 08/09/23 09:41 08/09/23 09:38 08/09/23 09:36 08/09/23 09:36 08/09/23 09:31 08/09/23 09:26 08/09/23 09:26 08/09/23 09:21 08/09/23 09:16 08/09/23 09:16 08/09/23 09:06 08/09/23 09:06 08/09/23 09:02 08/09/23 08:57 08/09/23 08:56 08/09/23 08:56 08/09/23 06:25 08/09/23 06:04 Pain Intensity Abdomen: Pain Intensity: 0 Transfer of Care Handoff Completed per policy Notes Mental Status: alert / awake / arousable and participated in evaluation Patient Amnestic to Procedure: Yes Nausea / Vomiting: adequately controlled Pain: adequately controlled Airway Patency, RR, SpO2: stable & adequate BP & HR: stable & adequate Hydration State: stable & adequate Anesthetic Complications: no major complications apparent
[2023-08-10] MEDS ORDERED: MEPERIDINE HCL 50 MG/ML CARP IV PRN (02:42)
[2023-08-10] MEDS ORDERED: KETOROLAC 30 MG/ML VIAL IV PRN (02:42)
[2023-08-10] MEDS ORDERED: diphenhydrAMINE Capsule 25 MG CAP PO PRN (02:42)
[2023-08-10] MEDS ORDERED: diphenhydrAMINE 50 MG/ML VIAL IV PRN (02:42)
[2023-08-10] MEDS ORDERED: oxyCODONE/ACETAMINOPHEN 5mg/325mg TAB PO PRN (02:42)
[2023-08-10] MEDS: ceFAZolin 1000MG 1,000 MG/7.5 ML SYR IV SCH (03:05)
[2023-08-10 04:21] LABS: Hematocrit (blood only) 31.3 % (37.0-47.0); Hemoglobin 11.1 g/dl (12.0-16.0); Mean Corpuscular Hemoglobin 29.8 pg (25.0-34.0); Mean Corpuscular Hgb Conc 35.5 g/dL (32.0-36.0); Mean Corpuscular Volume 83.9 fL (80.0-100.0); Mean Platelet Volume 11.6 fL (9.4-12.4); Platelet Count 30 K/uL (130-400); RDW Coefficient of Variation 14.7 % (11.5-14.5); RDW Standard Deviation 44.8 fL (36.4-46.3); Red Blood Count 3.73 M/uL (4.20-5.40); White Blood Count 12.21 K/ul (4.8-10.8)
[2023-08-10] MEDS ORDERED: SODIUM CHLORIDE 0.9% 250 ML IV PRN ×3 (04:36→06:06)
--- NOTE | 2023-08-10 04:36 | Obstetrical Progress Note ---
Date of Service August 10, 2023 Assessment & Plan (1) hemorrhage: s/p massive hemorrhage requiring blood products, return to OR for curettage and ERNESTINE placement- bleeding now resolved with Hgb at 11.1 ( was 6.3 pre-transfusion) platelets dropped from 69K to 30K from DIC will transfer to ICU for ongoing management. will start transfusion of another unit of platelets now. Subjective drainage in ERNESTINE tubing is minimal Hgb now 11.1 but platelets dropped from 69K to 30K despite transfusion of 1 unit platelets and 1 unit FFP + 4 units PRBC's Review of Systems All systems reviewed & are unremarkable except as noted in HPI & below Physical Exam Constitutional WD/WN, vitals as above Psychiatric A+Ox3, euthymic affect Genitourinary fundus firms no lochia noted. minimal drainage in tubing. no change since leaving OR. Results & Data Vital Signs (Past 12 Hours) Vital Signs Temp Pulse Resp BP Pulse Ox O2 Del Method O2 Flow Rate 08/10/23 04:27 77 97 08/10/23 04:22 74 96 08/10/23 04:17 75 96 08/10/23 04:15 78 94 08/10/23 04:12 77 96 08/10/23 04:07 76 96 08/10/23 04:05 74 116/69 08/10/23 04:02 78 98 08/10/23 04:00 16 96 08/10/23 03:58 77 94 08/10/23 03:57 78 96 08/10/23 03:52 76 97 08/10/23 03:47 77 96 08/10/23 03:42 77 97 08/10/23 03:37 78 96 08/10/23 03:35 75 106/62 08/10/23 03:32 79 96 08/10/23 03:27 75 96 08/10/23 03:22 81 97 08/10/23 03:17 76 96 08/10/23 03:13 16 97 08/10/23 03:12 77 97 08/10/23 03:07 78 98 08/10/23 03:02 78 97 08/10/23 03:01 78 117/67 08/10/23 02:57 71 98 08/10/23 02:52 76 96 08/10/23 02:47 79 97 08/10/23 02:46 78 128/80 05 02:42 74 97 05 02:37 77 98 05 02:32 76 97 05 02:31 80 118/68 05 02:27 75 97 05 02:22 74 98 05 02:17 76 97 05 02:16 73 109/65 05 02:12 75 98 05 02:07 77 96 05 02:02 77 97 05 02:01 16 98 08/10/23 02:01 77 105/65 05 02:00 98.4 F 77 16 105/65 97 05 01:57 79 98 08/10/23 01:52 79 97 08/10/23 01:47 76 98 08/10/23 01:46 79 122/68 05 01:42 80 97 05 01:37 85 97 05 01:32 81 98 05 01:31 78 108/63 05 01:27 76 97 05 01:22 78 98 05 01:17 78 97 05 01:16 77 116/66 05 01:12 88 98 08/10/23 01:07 81 96 08/10/23 01:02 79 97 08/10/23 01:01 78 107/62 05 01:00 16 97 05 01:00 98.4 F 78 16 107/62 97 05 00:57 79 96 05 00:52 85 96 05 00:47 79 97 05 00:46 78 128/59 L 08/10/23 00:42 79 98 0504 00:37 81 97 0504 00:32 79 96 05/04 00:31 98.1 F 78 16 108/67 96 05/07/30 00:31 78 108/67 05/04 00:27 79 98 05/04 00:22 80 97 05/04 00:17 87 98 05 00:16 98.6 F 85 16 115/69 98 08/10/23 00:16 85 115/69 08/10/23 00:12 87 96 08/10/23 00:07 83 97 08/10/23 00:04 16 97 08/10/23 00:02 85 97 08/10/23 00:01 98.2 F 84 16 109/67 97 08/10/23 00:01 76 109/67 08/09/23 23:57 98 08/09/23 23:57 85 08/09/23 23:53 98.2 F 85 16 111/64 98 08/09/23 23:52 99 08/09/23 23:52 89 08/09/23 23:47 97 08/09/23 23:47 85 08/09/23 23:46 87 08/09/23 23:46 111/64 08/09/23 23:42 98 08/09/23 23:42 85 08/09/23 23:40 98.2 F 83 16 109/67 98 08/09/23 23:37 98 08/09/23 23:37 85 08/09/23 23:32 97 08/09/23 23:32 89 08/09/23 23:31 88 08/09/23 23:31 104/63 08/09/23 23:27 99 08/09/23 23:27 86 08/09/23 23:22 98 08/09/23 23:22 86 08/09/23 23:17 97 08/09/23 23:17 90 08/09/23 23:16 98.2 F 85 16 107/66 99 08/09/23 23:16 84 08/09/23 23:16 107/66 08/09/23 23:12 98 08/09/23 23:12 87 08/09/23 23:07 96 08/09/23 23:07 88 08/09/23 23:02 98 08/09/23 23:02 82 08/09/23 23:01 98.2 F 08/09/23 23:01 88 18 128/77 98 08/09/23 23:01 88 08/09/23 23:01 128/77 08/09/23 23:00 18 08/09/23 22:57 98 08/09/23 22:57 94 H 08/09/23 22:52 99 05 22:52 86 08/09/23 22:47 99 08/09/23 22:47 86 08/09/23 22:46 85 05 22:46 121/76 05 22:45 98.2 F 83 18 121/76 100 08/09/23 22:42 100 08/09/23 22:42 80 08/09/23 22:37 100 08/09/23 22:37 84 08/09/23 22:37 121/78 05 22:32 100 08/09/23 22:32 81 08/09/23 22:31 97.9 F 83 16 133/84 100 2 08/09/23 22:27 100 08/09/23 22:27 83 08/09/23 22:22 100 08/09/23 22:22 82 08/09/23 22:22 133/84 08/09/23 22:20 97.9 F 79 15 134/84 100 5 08/09/23 22:20 80 08/09/23 22:20 134/84 08/09/23 22:17 100 08/09/23 22:17 82 08/09/23 22:12 100 08/09/23 22:12 79 08/09/23 22:07 100 08/09/23 22:07 78 08/09/23 22:07 131/84 08/09/23 22:02 100 08/09/23 22:02 81 08/09/23 21:57 100 08/09/23 21:57 80 08/09/23 21:52 100 08/09/23 21:52 80 05 21:51 97.9 F 80 13 100 08/09/23 21:51 80 05 21:51 145/89 H 08/09/23 21:50 97.9 F 80 14 131/84 100 05 21:50 97.9 F 79 13 145/89 H 100 08/09/23 21:47 100 05 21:47 82 08/09/23 21:42 100 08/09/23 21:42 84 05 21:37 100 05 21:37 82 05 21:36 82 05 21:36 143/82 H 05/03/24 21:35 98.1 F 81 15 143/82 H 100 10 05 21:32 100 05 21:32 79 05 21:27 100 05 21:27 78 05 21:23 82 05 21:23 141/82 H 05 21:22 100 05 21:22 77 05 21:21 98.1 F 83 14 141/82 H 100 10 05 21:21 98.1 F 77 14 100 05 21:17 100 05 21:17 77 05 21:12 100 05 21:12 77 05 21:08 78 05 21:08 144/92 H 08/09/23 21:07 100 08/09/23 21:07 80 08/09/23 21:02 100 08/09/23 21:02 86 05 20:57 100 05 20:57 80 05 20:53 81 05/06/29 20:53 138/89 05 20:52 100 05 20:52 81 05 20:51 98.8 F 78 16 138/89 100 10 05 20:51 98.8 F 78 16 138/89 100 05/06/29 20:51 98.8 F 16 05 20:47 100 05 20:47 81 05 20:42 100 05 20:42 82 05 20:39 74 05 20:39 150/83 H 05 20:37 100 05/06/29 20:37 77 05/06/29 20:36 98.8 F 76 14 150/83 H 100 10 05 20:36 98.8 F 14 05 20:32 100 05 20:32 80 05/06/29 20:27 100 05/06/29 20:27 82 05/06/29 20:23 78 05 20:23 144/100 H 05 20:22 100 08/09/23 20:22 84 08/09/23 20:21 98.8 F 88 16 144/100 H 100 10 08/09/23 20:21 98.8 F 16 08/09/23 20:17 100 08/09/23 20:17 79 08/09/23 20:12 100 08/09/23 20:12 78 08/09/23 20:07 100 08/09/23 20:07 78 08/09/23 20:07 152/92 H 05 20:06 98.8 F 80 16 152/92 H 100 10 08/09/23 20:06 98.8 F 78 16 152/92 H 100 08/09/23 20:02 100 08/09/23 20:02 83 08/09/23 19:57 100 08/09/23 19:57 89 08/09/23 19:56 81 08/09/23 19:56 139/84 08/09/23 19:52 100 08/09/23 19:52 88 08/09/23 19:52 111 H 08/09/23 19:52 159/96 H 08/09/23 19:51 97.7 F 82 14 159/96 H 100 08/09/23 19:51 97.7 F 14 08/09/23 19:51 97.7 F 14 100 Oxymask 10 08/09/23 19:47 100 08/09/23 19:47 81 08/09/23 19:43 78 08/09/23 19:43 152/89 H 08/09/23 19:42 100 08/09/23 19:42 78 08/09/23 19:37 100 08/09/23 19:37 86 08/09/23 19:35 97.7 F 14 08/09/23 19:32 100 08/09/23 19:32 84 05 19:32 135/86 08/09/23 18:45 98.1 F 18 08/09/23 18:39 100 08/09/23 18:39 109 H 08/09/23 18:39 101 H 08/09/23 18:39 120/70 08/09/23 18:34 100 08/09/23 18:34 102 H 08/09/23 18:34 103 H 08/09/23 18:34 126/83 08/09/23 18:30 98.2 F 16 08/09/23 18:29 100 08/09/23 18:29 111 H 08/09/23 18:29 123/79 08/09/23 18:24 100 08/09/23 18:24 105 H 08/09/23 18:24 147/81 H 08/09/23 18:23 98.4 F 104 H 16 167/84 H 100 08/09/23 18:19 100 08/09/23 18:19 120 H 08/09/23 18:19 167/84 H 08/09/23 18:16 80 L 08/09/23 18:16 116 H 08/09/23 18:14 100 08/09/23 18:14 108 H 08/09/23 18:14 105 H 08/09/23 18:14 121/81 08/09/23 18:09 100 08/09/23 18:09 112 H
[2023-08-10 04:41] LABS: Basophils # (auto) 0.02 K/uL (0.00-0.20); Basophils % (auto) 0.2 %; Eosinophils # (auto) 0.01 K/uL (0.00-0.50); Eosinophils % (auto) 0.1 %; Immature Granulocytes # (auto) 0.09 K/uL (0.01-0.20); Immature Granulocytes % (auto) 0.7 %; Lymphocytes % (auto) 15.6 %; Monocytes # (auto) 0.96 K/uL (0.11-0.59); Monocytes % (auto) 7.9 %; Neutrophils # (auto) 9.23 K/uL (1.40-6.50); Neutrophils % (auto) 75.5 %; Polychromasia 1+
[2023-08-10] MEDS: OXYTOCIN 20 UNITS in LACTATED RINGER'S 1,000 ML IV SCH (05:01)
[2023-08-10] MEDS: OXYTOCIN 30 UNITS/500ML NSS IV ONE (05:28)
[2023-08-10] MEDS: DEXTROSE 50% 50 ML SYRINGE IV ONE (05:35)
[2023-08-10 06:56] LABS: Fibrinogen 223 mg/dl (184-400); Partial Thromboplastin Ratio 1.4; Partial Thromboplastin Time 37 Seconds (21-31); Prothrombin Time 10.6 Seconds (9.0-12.0)
[2023-08-10 07:00] LABS: Albumin Level 2.2 gm/dl (3.4-5.0); Bilirubin Direct 0.3 mg/dl (0-0.2); Bilirubin,Total 1.2 mg/dl (0.2-1.0); Total Protein 4.2 gm/dl (6.0-8.3)
--- NOTE | 2023-08-10 07:01 | Critical Care Consultation ---
Date of Consultation August 10, 2023 Assessment & Plan (1) hemorrhage: Impression: 37-year-old female at 38 weeks gestation for twins underwent section for breech , for which she developed this significant vaginal bleeding postop. Went back to OR for insertion of jaded device and underwent transfusion with 4 units RBCs, now developing DIC and transferred to ICU for further management. Neuro - [facility] ICU: Negative Cardiac - No history of cardiac disease. Currently hemodynamically stable without need for vasopressor support. Will continue with transfusion as indicated. Maps currently maintaining at 65 Continuous monitoring on telemetry Respiratory - No history of pulmonary disease. Lungs clear to auscultation and no respiratory distress on room air. Continuous monitoring on pulse ox GI - N.p.o. for now RENAL/LYTES - Creatinine within normal limits. No electrolyte abnormalities. Monitor routine BMPs LR at 125 mL/h - Strict I's and O's ENDO - Gestational diabetessliding scale as needed. ICU hyperglycemic protocol HEME - Acute blood loss anemia/ hemorrhageunderwent placement of jaded device. Management per labor delivery -EBL 2.3 L thus far -Has current really received total blood product 4 units RBCs, 2 platelets, 1 FFP -Repeat hemoglobin 11, platelets dropping to 30,000 and suspect DIC. Coags and fibrinogen pending -Will give additional 1 unit platelets and 2 units FFP, 1 unit cryo. 2 units platelets emergently ordered to hospital as supply has exhausted -Trend coags and CBCs. Transfuse as indicated ID - No indication for infectious process at this time. Patient did receive Ancef x 2 empirically LINES/IV ACCESS - Peripheral IV x 2 DVT PROPHYLAXIS - SCDs, hold anticoagulation in the setting of acute bleed Thank you for allowing us to participate in the care of this patient. Please refer to my attending physician's documentation for any further recommendations. (2) Acute blood loss anemia: (3) DIC (disseminated intravascular coagulation): (4) Gestational diabetes: Supervising Physician Co-Signing Physician Notes Agree with the note as above. Will give 2 g of calcium gluconate. Recheck CBC and fibrinogen level at noon. Patient will likely be stable for transfer back to OB department later today. History of Present Illness Attending Physician: Clau Desai MD, FACOG History of Present Illness Patient is a 37-year-old female with no significant past medical history prior to recent with twins in which she developed gestational diabetes. Patient presented with breech at 38 weeks and underwent yesterday morning. Unfortunately she developed a significant amount of vaginal bleeding yesterday evening and was taken back to the OR for placement of Jacqueline device. CBC revealed hemoglobin of 6.3 and platelets of 65,000. She was given total of 4 units RBCs, 1 unit FFP, and 1 unit platelets. Repeat CBC showed decrease in platelet count, and she had continued bleeding with concern of developing DIC. She is now being transferred to the ICU. On arrival to the ICU the patient is alert and oriented without acute distress. She is hemodynamically stable without use of vasopressors. She is currently receiving an additional unit of platelets. Only complaint is generalized weakness. She denies pain, dizziness, headaches, syncope, changes in vision, fevers, shortness of breath, chest pain or palpitations, abdominal pain, nausea or vomiting. Patient to remain in ICU for further management at this time. Allergies Allergy/AdvReac Type Severity Reaction Status Date / Time No Known Allergies Allergy Verified 08/09/23 06:24 Home Medications Medication Instructions Recorded Confirmed Type prenat.vits,jacqueline,[id number] 1 tab PO DAILY 06/05/22 08/08/23 History cholecalciferol (vitamin D3) 1 tab PO UD 12/31/22 08/08/23 History acetone (urine) test (Ketone Urine #50 ea 04/29/23 08/08/23 Rx Test strips) blood sugar diagnostic (OneTouch #150 ea 04/29/23 08/08/23 Rx Verio test strips) blood-glucose meter (OneTouch #1 ea 04/29/23 08/08/23 Rx Verio Reflect Meter) lancets 33 gauge (OneTouch Delica #150 ea 04/29/23 08/08/23 Rx Plus Lancet) aspirin 81 mg chewable tablet 81 mg PO DAILY 05/13/23 08/09/23 History pen needle, diabetic 32 gauge x #100 ea 05/16/23 08/08/23 Rx 5/32" (BD Ultra-Fine Lanie Pen Needle) calcium carbonate [Tums] 1 tab PO DIRECTED PRN Acid 06/10/23 08/08/23 History Reflux famotidine [Pepcid] 1 tab PO DAILY PRN Acid Reflux 06/10/23 08/08/23 History ferrous sulfate [Iron (ferrous 25 mg PO UD 06/10/23 08/08/23 History sulfate)] insulin NPH isoph U-100 human 100 15 unit subcut QPM 07/01/23 08/09/23 History unit/mL (3 mL) subcutaneous pen (Novolin N FlexPen) Patient History Medical History Acid reflux Dichorionic diamniotic twin Gestational diabetes Surgical History No history of previous surgery S/P dilation and curettage Family History Mother Premature labor Other Anemia Diabetes Gestational diabetes Heart disease No family history of adverse response to anesthesia Denies family history of Ovarian cancer Breast cancer Colorectal cancer Social History Smoking Status: Never smoker Second Hand Exposure: No; Do You Dip or Chew Tobacco: No; Hx Alcohol Use: No Hx Substance Use: No Preferred Language: Fijian Communication Ability: Effective Visual Impairment: No Limitations [employer] Required: No Beliefs That Will Affect Care: Spiritism Spiritism Beliefs: requesting to keep bangle bracelet on due to hindu belief marital status: marital status details: Itz [phone] Current Living Situation: Spouse Current Living Situation Comment: lives with spouse, no pets. current occupational status: employed current occupation: Post researcher at [employer] Feels Safe at Home: Yes Assistive Devices: Glasses Review of Systems Review of Systems: All systems reviewed & are unremarkable except as noted in HPI & below Physical Exam Constitutional: cooperative and comfortable Eyes: PERRL, conjunctivae normal, anicteric sclerae ENMT: external ear and nose normal, oropharynx normal Neck: trachea midline, no thyromegaly Respiratory: normal respiratory effort, lungs clear to auscultation Cardiovascular: RRR, no murmur, no edema Heart Sounds: normal S1 and normal S2; no murmur Extremities: no edema Gastrointestinal (Abdomen): normal bowel sounds, soft, nontender, no hepatosplenomegaly incision well-approximated Musculoskeletal: no cyanosis or clubbing, extremities motor strength 5/5 Skin: no rashes, warm and dry Neurologic: PERRL, EOMI, accommodation nl, no face palsy, no dysarthria Psychiatric: A+Ox3, euthymic affect Results & Data Results & Data Vital Signs (Past 12 Hours) Vital Signs Temp Pulse Resp BP Pulse Ox O2 Del Method O2 Flow Rate 08/10/23 06:43 36.8 C 68 14 126/79 100 08/10/23 06:28 36.7 C 62 14 117/64 99 08/10/23 06:28 36.8 C 59 L 18 117/74 99 08/10/23 06:19 36.8 C 55 L 14 112/67 100 08/10/23 06:11 36.5 C 54 L 14 93/74 L 99 08/10/23 05:02 74 98 08/10/23 04:57 75 98 08/10/23 04:52 72 98 08/10/23 04:47 76 98 08/10/23 04:42 74 96 08/10/23 04:37 76 97 08/10/23 04:35 71 119/63 08/10/23 04:32 76 97 08/10/23 04:27 77 97 08/10/23 04:22 74 96 08/10/23 04:17 75 96 08/10/23 04:15 78 94 08/10/23 04:12 77 96 08/10/23 04:07 76 96 08/10/23 04:05 74 116/69 08/10/23 04:02 78 98 08/10/23 04:00 16 96 08/10/23 03:58 77 94 08/10/23 03:57 78 96 08/10/23 03:52 76 97 08/10/23 03:47 77 96 08/10/23 03:42 77 97 08/10/23 03:37 78 96 08/10/23 03:35 75 106/62 08/10/23 03:32 79 96 08/10/23 03:27 75 96 08/10/23 03:22 81 97 08/10/23 03:17 76 96 08/10/23 03:13 16 97 08/10/23 03:12 77 97 08/10/23 03:07 78 98 08/10/23 03:02 78 97 08/10/23 03:01 78 117/67 05 02:57 71 98 05 02:52 76 96 05 02:47 79 97 05 02:46 78 128/80 05 02:42 74 97 08/10/23 02:37 77 98 08/10/23 02:32 76 97 08/10/23 02:31 80 118/68 05 02:27 75 97 05 02:22 74 98 05 02:17 76 97 08/10/23 02:16 73 109/65 08/10/23 02:12 75 98 08/10/23 02:07 77 96 08/10/23 02:02 77 97 08/10/23 02:01 16 98 08/10/23 02:01 77 105/65 08/10/23 02:00 36.9 C 77 16 105/65 97 08/10/23 01:57 79 98 05 01:52 79 97 08/10/23 01:47 76 98 05 01:46 79 122/68 08/10/23 01:42 80 97 08/10/23 01:37 85 97 08/10/23 01:32 81 98 05 01:31 78 108/63 05 01:27 76 97 05 01:22 78 98 08/10/23 01:17 78 97 08/10/23 01:16 77 116/66 08/10/23 01:12 88 98 08/10/23 01:07 81 96 08/10/23 01:02 79 97 05 01:01 78 107/62 05 01:00 16 97 08/10/23 01:00 36.9 C 78 16 107/62 97 08/10/23 00:57 79 96 0504 00:52 85 96 05 00:47 79 97 0504 00:46 78 128/59 L 08/10/23 00:42 79 98 0504 00:37 81 97 05/04 00:32 79 96 05/04 00:31 36.7 C 78 16 108/67 96 0504 00:31 78 108/67 05/04/24 00:27 79 98 08/10/23 00:22 80 97 08/10/23 00:17 87 98 08/10/23 00:16 37.0 C 85 16 115/69 98 08/10/23 00:16 85 115/69 08/10/23 00:12 87 96 08/10/23 00:07 83 97 08/10/23 00:04 16 97 08/10/23 00:02 85 97 08/10/23 00:01 36.8 C 84 16 109/67 97 08/10/23 00:01 76 109/67 08/09/23 23:57 98 08/09/23 23:57 85 08/09/23 23:53 36.8 C 85 16 111/64 98 08/09/23 23:52 99 08/09/23 23:52 89 08/09/23 23:47 97 08/09/23 23:47 85 08/09/23 23:46 87 08/09/23 23:46 111/64 08/09/23 23:42 98 08/09/23 23:42 85 08/09/23 23:40 36.8 C 83 16 109/67 98 08/09/23 23:37 98 08/09/23 23:37 85 08/09/23 23:32 97 08/09/23 23:32 89 08/09/23 23:31 88 08/09/23 23:31 104/63 08/09/23 23:27 99 08/09/23 23:27 86 08/09/23 23:22 98 08/09/23 23:22 86 08/09/23 23:17 97 08/09/23 23:17 90 08/09/23 23:16 36.8 C 85 16 107/66 99 08/09/23 23:16 84 08/09/23 23:16 107/66 08/09/23 23:12 98 08/09/23 23:12 87 08/09/23 23:07 96 08/09/23 23:07 88 08/09/23 23:02 98 08/09/23 23:02 82 08/09/23 23:01 36.8 C 08/09/23 23:01 88 18 128/77 98 08/09/23 23:01 88 08/09/23 23:01 128/77 08/09/23 23:00 18 08/09/23 22:57 98 08/09/23 22:57 94 H 08/09/23 22:52 99 08/09/23 22:52 86 08/09/23 22:47 99 08/09/23 22:47 86 08/09/23 22:46 85 08/09/23 22:46 121/76 08/09/23 22:45 36.8 C 83 18 121/76 100 08/09/23 22:42 100 08/09/23 22:42 80 08/09/23 22:37 100 08/09/23 22:37 84 08/09/23 22:37 121/78 08/09/23 22:32 100 08/09/23 22:32 81 08/09/23 22:31 36.6 C 83 16 133/84 100 2 08/09/23 22:27 100 08/09/23 22:27 83 08/09/23 22:22 100 08/09/23 22:22 82 08/09/23 22:22 133/84 08/09/23 22:20 36.6 C 79 15 134/84 100 5 08/09/23 22:20 80 08/09/23 22:20 134/84 08/09/23 22:17 100 08/09/23 22:17 82 08/09/23 22:12 100 08/09/23 22:12 79 08/09/23 22:07 100 08/09/23 22:07 78 08/09/23 22:07 131/84 08/09/23 22:02 100 08/09/23 22:02 81 08/09/23 21:57 100 08/09/23 21:57 80 08/09/23 21:52 100 08/09/23 21:52 80 08/09/23 21:51 36.6 C 80 13 100 08/09/23 21:51 80 08/09/23 21:51 145/89 H 08/09/23 21:50 36.6 C 80 14 131/84 100 08/09/23 21:50 36.6 C 79 13 145/89 H 100 08/09/23 21:47 100 08/09/23 21:47 82 08/09/23 21:42 100 08/09/23 21:42 84 08/09/23 21:37 100 08/09/23 21:37 82 08/09/23 21:36 82 08/09/23 21:36 143/82 H 08/09/23 21:35 36.7 C 81 15 143/82 H 100 10 08/09/23 21:32 100 08/09/23 21:32 79 08/09/23 21:27 100 08/09/23 21:27 78 08/09/23 21:23 82 08/09/23 21:23 141/82 H 08/09/23 21:22 100 08/09/23 21:22 77 08/09/23 21:21 36.7 C 83 14 141/82 H 100 10 08/09/23 21:21 36.7 C 77 14 100 08/09/23 21:17 100 08/09/23 21:17 77 08/09/23 21:12 100 08/09/23 21:12 77 08/09/23 21:08 78 08/09/23 21:08 144/92 H 08/09/23 21:07 100 08/09/23 21:07 80 08/09/23 21:02 100 08/09/23 21:02 86 08/09/23 20:57 100 08/09/23 20:57 80 08/09/23 20:53 81 08/09/23 20:53 138/89 08/09/23 20:52 100 08/09/23 20:52 81 08/09/23 20:51 37.1 C 78 16 138/89 100 10 08/09/23 20:51 37.1 C 78 16 138/89 100 08/09/23 20:51 37.1 C 16 08/09/23 20:47 100 08/09/23 20:47 81 08/09/23 20:42 100 08/09/23 20:42 82 08/09/23 20:39 74 08/09/23 20:39 150/83 H 08/09/23 20:37 100 08/09/23 20:37 77 08/09/23 20:36 37.1 C 76 14 150/83 H 100 10 08/09/23 20:36 37.1 C 14 05 20:32 100 08/09/23 20:32 80 05/03/24 20:27 100 08/09/23 20:27 82 08/09/23 20:23 78 08/09/23 20:23 144/100 H 08/09/23 20:22 100 08/09/23 20:22 84 08/09/23 20:21 37.1 C 88 16 144/100 H 100 10 08/09/23 20:21 37.1 C 16 08/09/23 20:17 100 08/09/23 20:17 79 08/09/23 20:12 100 08/09/23 20:12 78 08/09/23 20:07 100 08/09/23 20:07 78 08/09/23 20:07 152/92 H 08/09/23 20:06 37.1 C 80 16 152/92 H 100 10 08/09/23 20:06 37.1 C 78 16 152/92 H 100 08/09/23 20:02 100 08/09/23 20:02 83 08/09/23 19:57 100 08/09/23 19:57 89 08/09/23 19:56 81 08/09/23 19:56 139/84 08/09/23 19:52 100 08/09/23 19:52 88 08/09/23 19:52 111 H 08/09/23 19:52 159/96 H 08/09/23 19:51 36.5 C 82 14 159/96 H 100 08/09/23 19:51 36.5 C 14 08/09/23 19:51 36.5 C 14 100 Oxymask 10 08/09/23 19:47 100 08/09/23 19:47 81 08/09/23 19:43 78 08/09/23 19:43 152/89 H 08/09/23 19:42 100 08/09/23 19:42 78 08/09/23 19:37 100 08/09/23 19:37 86 08/09/23 19:35 36.5 C 14 08/09/23 19:32 100 08/09/23 19:32 84 08/09/23 19:32 135/86 Coding Level of Care Code 97936 IN/OBS CONSULT LVL 4,60M Diagnoses hemorrhage O72.1 Acute blood loss anemia D62 DIC (disseminated intravascular coagulation) D65 Gestational diabetes O24.419 Time Spent (min) 50
[2023-08-10] MEDS: CALCIUM GLUCONATE 1,000 MG/60 ML BAG IV SCH ×2 (08:49→09:23)
--- NOTE | 2023-08-10 08:50 | Obstetrical Progress Note ---
Date of Service August 10, 2023 Assessment & Plan (1) delivery, delivered, current hospitalization: From the obstetric standpoint she is currently stable with no evidence of significant bleeding at this time. Because of DIC, we defer to the ICU staff for management via blood products and monitoring. We will keep the J ADA device in place until platelet counts have reached the normal range prior to removing the device. She has had no bleeding around the device and the amount of blood in the tubing and suction has been been stable since it is insertion yesterday afternoon at 7 PM. We appreciate the ICU staff's management and will continue to follow along. Subjective Voiding: nogueira catheter in place Diet Tolerance:: clear liquids Lochia:: Small Feeding Type:: breast feeding Resting comfortably in the ICU since her transfer earlier this morning. Pain has been minimal and well-controlled on current pain meds regimen. J ADA device is still in place on 80 mmHg wall suction. Patient denies any nausea or vomiting at this time. Physical Exam Constitutional WD/WN, vitals as above Psychiatric A+Ox3, euthymic affect Genitourinary OB Exam Abdomen: + fundal height Fundus: + firm and + relation to umbilicus (1 below) incision dry & intact- no ecchymosis or collections noted beneath the incision Results & Data Vital Signs (Past 12 Hours) Vital Signs Temp Pulse Resp BP Pulse Ox Pulse Ox O2 Del Method 08/10/23 08:27 57 L 08/10/23 08:21 97.9 F 55 L 15 109/66 99 08/10/23 08:06 97.9 F 69 14 105/68 100 08/10/23 07:47 97.9 F 70 16 125/72 100 08/10/23 06:43 98.2 F 68 14 126/79 100 08/10/23 06:28 98.1 F 62 14 117/64 99 08/10/23 06:28 98.2 F 59 L 18 117/74 99 08/10/23 06:19 98.2 F 55 L 14 112/67 100 08/10/23 06:11 97.7 F 54 L 14 93/74 L 99 08/10/23 05:15 Room Air 08/10/23 05:15 100 08/10/23 05:02 74 98 08/10/23 04:57 75 98 08/10/23 04:52 72 98 05 04:47 76 98 05 04:42 74 96 05 04:37 76 97 05 04:35 71 119/63 08/10/23 04:32 76 97 05 04:27 77 97 05 04:22 74 96 08/10/23 04:17 75 96 08/10/23 04:15 78 94 05 04:12 77 96 08/10/23 04:07 76 96 05 04:05 74 116/69 08/10/23 04:02 78 98 05 04:00 16 96 08/10/23 03:58 77 94 05 03:57 78 96 08/10/23 03:52 76 97 08/10/23 03:47 77 96 08/10/23 03:42 77 97 08/10/23 03:37 78 96 08/10/23 03:35 75 106/62 08/10/23 03:32 79 96 08/10/23 03:27 75 96 05 03:22 81 97 08/10/23 03:17 76 96 08/10/23 03:13 16 97 08/10/23 03:12 77 97 05 03:07 78 98 08/10/23 03:02 78 97 08/10/23 03:01 78 117/67 08/10/23 02:57 71 98 08/10/23 02:52 76 96 08/10/23 02:47 79 97 05 02:46 78 128/80 05 02:42 74 97 05 02:37 77 98 05 02:32 76 97 05 02:31 80 118/68 05 02:27 75 97 05 02:22 74 98 05 02:17 76 97 08/10/23 02:16 73 109/65 05 02:12 75 98 08/10/23 02:07 77 96 05 02:02 77 97 05 02:01 16 98 05 02:01 77 105/65 05 02:00 98.4 F 77 16 105/65 97 05 01:57 79 98 05 01:52 79 97 05 01:47 76 98 05 01:46 79 122/68 08/10/23 01:42 80 97 08/10/23 01:37 85 97 08/10/23 01:32 81 98 05 01:31 78 108/63 08/10/23 01:27 76 97 05 01:22 78 98 05 01:17 78 97 05 01:16 77 116/66 08/10/23 01:12 88 98 08/10/23 01:07 81 96 08/10/23 01:02 79 97 08/10/23 01:01 78 107/62 08/10/23 01:00 16 97 08/10/23 01:00 98.4 F 78 16 107/62 97 08/10/23 00:57 79 96 08/10/23 00:52 85 96 08/10/23 00:47 79 97 08/10/23 00:46 78 128/59 L 08/10/23 00:42 79 98 08/10/23 00:37 81 97 08/10/23 00:32 79 96 08/10/23 00:31 98.1 F 78 16 108/67 96 08/10/23 00:31 78 108/67 05 00:27 79 98 08/10/23 00:22 80 97 08/10/23 00:17 87 98 08/10/23 00:16 98.6 F 85 16 115/69 98 08/10/23 00:16 85 115/69 05 00:12 87 96 08/10/23 00:07 83 97 08/10/23 00:04 16 97 08/10/23 00:02 85 97 08/10/23 00:01 98.2 F 84 16 109/67 97 08/10/23 00:01 76 109/67 05 23:57 98 05 23:57 85 05 23:53 98.2 F 85 16 111/64 98 05 23:52 99 05 23:52 89 05 23:47 97 05 23:47 85 08/09/23 23:46 87 08/09/23 23:46 111/64 08/09/23 23:42 98 05 23:42 85 08/09/23 23:40 98.2 F 83 16 109/67 98 08/09/23 23:37 98 08/09/23 23:37 85 08/09/23 23:32 97 08/09/23 23:32 89 08/09/23 23:31 88 08/09/23 23:31 104/63 05 23:27 99 08/09/23 23:27 86 08/09/23 23:22 98 08/09/23 23:22 86 08/09/23 23:17 97 08/09/23 23:17 90 08/09/23 23:16 98.2 F 85 16 107/66 99 08/09/23 23:16 84 08/09/23 23:16 107/66 08/09/23 23:12 98 08/09/23 23:12 87 08/09/23 23:07 96 08/09/23 23:07 88 08/09/23 23:02 98 08/09/23 23:02 82 08/09/23 23:01 98.2 F 08/09/23 23:01 88 18 128/77 98 08/09/23 23:01 88 08/09/23 23:01 128/77 08/09/23 23:00 18 08/09/23 22:57 98 08/09/23 22:57 94 H 08/09/23 22:52 99 08/09/23 22:52 86 08/09/23 22:47 99 08/09/23 22:47 86 08/09/23 22:46 85 08/09/23 22:46 121/76 05 22:45 98.2 F 83 18 121/76 100 05 22:42 100 08/09/23 22:42 80 08/09/23 22:37 100 08/09/23 22:37 84 08/09/23 22:37 121/78 05 22:32 100 08/09/23 22:32 81 05 22:31 97.9 F 83 16 133/84 100 08/09/23 22:27 100 05/03/24 22:27 83 05 22:22 100 08/09/23 22:22 82 05 22:22 133/84 08/09/23 22:20 97.9 F 79 15 134/84 100 08/09/23 22:20 80 08/09/23 22:20 134/84 08/09/23 22:17 100 08/09/23 22:17 82 05 22:12 100 08/09/23 22:12 79 08/09/23 22:07 100 08/09/23 22:07 78 08/09/23 22:07 131/84 08/09/23 22:02 100 08/09/23 22:02 81 08/09/23 21:57 100 08/09/23 21:57 80 08/09/23 21:52 100 08/09/23 21:52 80 08/09/23 21:51 97.9 F 80 13 100 08/09/23 21:51 80 08/09/23 21:51 145/89 H 05 21:50 97.9 F 80 14 131/84 100 08/09/23 21:50 97.9 F 79 13 145/89 H 100 08/09/23 21:47 100 08/09/23 21:47 82 08/09/23 21:42 100 08/09/23 21:42 84 08/09/23 21:37 100 08/09/23 21:37 82 08/09/23 21:36 82 05 21:36 143/82 H 08/09/23 21:35 98.1 F 81 15 143/82 H 100 08/09/23 21:32 100 08/09/23 21:32 79 08/09/23 21:27 100 08/09/23 21:27 78 05 21:23 82 05 21:23 141/82 H 08/09/23 21:22 100 08/09/23 21:22 77 08/09/23 21:21 98.1 F 83 14 141/82 H 100 05 21:21 98.1 F 77 14 100 08/09/23 21:17 100 08/09/23 21:17 77 05 21:12 100 0524 21:12 77 08/09/23 21:08 78 08/09/23 21:08 144/92 H 08/09/23 21:07 100 08/09/23 21:07 80 08/09/23 21:02 100 08/09/23 21:02 86 08/09/23 20:57 100 08/09/23 20:57 80 08/09/23 20:53 81 08/09/23 20:53 138/89 08/09/23 20:52 100 08/09/23 20:52 81 08/09/23 20:51 98.8 F 78 16 138/89 100 08/09/23 20:51 98.8 F 78 16 138/89 100 08/09/23 20:51 98.8 F 16 08/09/23 20:47 100 08/09/23 20:47 81 O2 Del Method O2 Flow Rate 08/10/23 08:27 08/10/23 08:21 08/10/23 08:06 08/10/23 07:47 08/10/23 06:43 08/10/23 06:28 08/10/23 06:28 08/10/23 06:19 08/10/23 06:11 08/10/23 05:15 08/10/23 05:15 Room Air 08/10/23 05:02 08/10/23 04:57 08/10/23 04:52 08/10/23 04:47 08/10/23 04:42 08/10/23 04:37 08/10/23 04:35 08/10/23 04:32 08/10/23 04:27 08/10/23 04:22 08/10/23 04:17 08/10/23 04:15 08/10/23 04:12 08/10/23 04:07 08/10/23 04:05 08/10/23 04:02 08/10/23 04:00 08/10/23 03:58 08/10/23 03:57 08/10/23 03:52 08/10/23 03:47 08/10/23 03:42 08/10/23 03:37 08/10/23 03:35 08/10/23 03:32 08/10/23 03:27 08/10/23 03:22 08/10/23 03:17 08/10/23 03:13 08/10/23 03:12 08/10/23 03:07 08/10/23 03:02 08/10/23 03:01 08/10/23 02:57 08/10/23 02:52 08/10/23 02:47 08/10/23 02:46 08/10/23 02:42 08/10/23 02:37 08/10/23 02:32 08/10/23 02:31 08/10/23 02:27 08/10/23 02:22 08/10/23 02:17 08/10/23 02:16 08/10/23 02:12 08/10/23 02:07 08/10/23 02:02 08/10/23 02:01 08/10/23 02:01 08/10/23 02:00 08/10/23 01:57 08/10/23 01:52 08/10/23 01:47 08/10/23 01:46 08/10/23 01:42 08/10/23 01:37 08/10/23 01:32 08/10/23 01:08/10/23 01:27 08/10/23 01:22 08/10/23 01:17 08/10/23 01:08/10/23 01:12 08/10/23 01:08/10/23 01:02 08/10/23 01:01 08/10/23 01:00 08/10/23 01:00 08/10/23 00:57 08/10/23 00:52 08/10/23 00:47 08/10/23 00:46 08/10/23 00:42 08/10/23 00:37 08/10/23 00:32 08/10/23 00:08/10/23 00:08/10/23 00:08/10/23 00:08/10/23 00:17 08/10/23 00:08/10/23 00:16 08/10/23 00:12 08/10/23 00:07 08/10/23 00:04 08/10/23 00:02 08/10/23 00:01 08/10/23 00:01 08/09/23 23:57 08/09/23 23:57 08/09/23 23:53 08/09/23 23:52 08/09/23 23:52 08/09/23 23:47 08/09/23 23:47 08/09/23 23:46 08/09/23 23:46 08/09/23 23:42 08/09/23 23:42 08/09/23 23:40 08/09/23 23:37 08/09/23 23:37 08/09/23 23:32 08/09/23 23:32 08/09/23 23:31 08/09/23 23:31 08/09/23 23:27 08/09/23 23:27 08/09/23 23:22 08/09/23 23:22 08/09/23 23:17 08/09/23 23:17 08/09/23 23:16 08/09/23 23:16 08/09/23 23:16 08/09/23 23:12 08/09/23 23:12 08/09/23 23:07 08/09/23 23:07 08/09/23 23:02 08/09/23 23:02 08/09/23 23:01 08/09/23 23:01 08/09/23 23:01 08/09/23 23:01 08/09/23 23:00 08/09/23 22:57 08/09/23 22:57 08/09/23 22:52 08/09/23 22:52 08/09/23 22:47 08/09/23 22:47 08/09/23 22:46 08/09/23 22:46 08/09/23 22:45 08/09/23 22:42 08/09/23 22:42 08/09/23 22:37 08/09/23 22:37 08/09/23 22:37 08/09/23 22:32 08/09/23 22:32 08/09/23 22:31 2 08/09/23 22:27 08/09/23 22:27 08/09/23 22:22 08/09/23 22:22 08/09/23 22:22 08/09/23 22:20 5 08/09/23 22:20 08/09/23 22:20 05/03/24 22:17 08/09/23 22:17 08/09/23 22:12 08/09/23 22:12 08/09/23 22:07 08/09/23 22:07 08/09/23 22:07 08/09/23 22:02 08/09/23 22:02 08/09/23 21:57 08/09/23 21:57 08/09/23 21:52 08/09/23 21:52 08/09/23 21:51 08/09/23 21:51 08/09/23 21:51 08/09/23 21:50 08/09/23 21:50 08/09/23 21:47 08/09/23 21:47 08/09/23 21:42 08/09/23 21:42 08/09/23 21:37 08/09/23 21:37 08/09/23 21:36 08/09/23 21:36 08/09/23 21:35 10 08/09/23 21:32 08/09/23 21:32 08/09/23 21:27 08/09/23 21:27 08/09/23 21:23 08/09/23 21:23 08/09/23 21:22 08/09/23 21:22 08/09/23 21:21 10 08/09/23 21:21 08/09/23 21:17 08/09/23 21:17 08/09/23 21:12 08/09/23 21:12 08/09/23 21:08 08/09/23 21:08 08/09/23 21:07 08/09/23 21:07 08/09/23 21:02 08/09/23 21:02 08/09/23 20:57 08/09/23 20:57 08/09/23 20:53 08/09/23 20:53 08/09/23 20:52 08/09/23 20:52 08/09/23 20:51 10 08/09/23 20:51 08/09/23 20:51 08/09/23 20:47 08/09/23 20:47
[2023-08-10] MEDS: FERROUS SULFATE 325 MG TAB PO SCH (10:20)
[2023-08-10] MEDS: PRENATAL VITAMIN 1 TAB PO SCH (10:20)
[2023-08-10 12:14] LABS: Basophils # (auto) 0.02 K/uL (0.00-0.20); Basophils % (auto) 0.2 %; Eosinophils # (auto) 0.03 K/uL (0.00-0.50); Eosinophils % (auto) 0.3 %; Hematocrit (blood only) 29.9 % (37.0-47.0); Hemoglobin 10.5 g/dl (12.0-16.0); Immature Granulocytes # (auto) 0.06 K/uL (0.01-0.20); Immature Granulocytes % (auto) 0.5 %; Lymphocytes # (auto) 1.75 K/uL (1.20-3.40); Lymphocytes % (auto) 15.3 %; Mean Corpuscular Hemoglobin 29.7 pg (25.0-34.0); Mean Corpuscular Hgb Conc 35.1 g/dL (32.0-36.0); Mean Corpuscular Volume 84.7 fL (80.0-100.0); Mean Platelet Volume 11.1 fL (9.4-12.4); Monocytes # (auto) 0.77 K/uL (0.11-0.59); Monocytes % (auto) 6.7 %; Neutrophils # (auto) 8.78 K/uL (1.40-6.50); Platelet Count 86 K/uL (130-400); RDW Coefficient of Variation 15.7 % (11.5-14.5); RDW Standard Deviation 46.8 fL (36.4-46.3); Red Blood Count 3.53 M/uL (4.20-5.40); White Blood Count 11.41 K/ul (4.8-10.8)
[2023-08-10 12:47] LABS: Fibrinogen 362 mg/dl (184-400)
[2023-08-10] MEDS: ACETAMINOPHEN 325 MG TAB PO PRN (13:36)
--- NOTE | 2023-08-10 16:46 | Obstetrical Progress Note ---
Date of Service August 10, 2023 Assessment & Plan Admission and Anticipated Discharge Date Admission Date: August 09, 2023 Subjective ERNESTINE removed after 2 hours of monitoring off suction and minimal bleeding noted. Patient appears stable with CBC/platelets improving. Blood counts show appropriate response from transfusion. CBC pending and patient will return to floor if noted to be stable. Results & Data Vital Signs (Past 12 Hours) Vital Signs Temp Pulse Resp BP Pulse Ox Pulse Ox O2 Del Method 08/10/23 16:01 76 16 98 08/10/23 16:00 136/91 08/10/23 15:59 72 15 98 08/10/23 15:01 83 18 98 08/10/23 15:00 130/74 08/10/23 14:59 80 18 98 08/10/23 14:00 71 13 98 08/10/23 13:00 72 19 99 08/10/23 13:00 118/74 08/10/23 12:09 37 C 08/10/23 12:01 81 21 99 08/10/23 12:00 136/77 08/10/23 11:58 68 23 99 08/10/23 11:45 68 19 99 08/10/23 11:30 62 18 100 08/10/23 11:15 62 14 99 08/10/23 11:12 36.7 C 64 19 109/68 99 08/10/23 11:00 109/68 08/10/23 11:00 81 16 97 08/10/23 11:00 36.6 C 08/10/23 10:46 36.7 C 73 18 109/73 98 08/10/23 10:45 64 14 99 08/10/23 10:31 77 19 99 08/10/23 10:31 36.9 C 78 17 133/72 99 08/10/23 10:30 133/72 08/10/23 10:29 59 L 18 100 08/10/23 10:13 36.8 C 73 19 122/70 99 08/10/23 10:00 122/70 08/10/23 10:00 70 15 99 08/10/23 09:45 67 21 98 08/10/23 09:30 59 L 15 98 08/10/23 09:30 108/64 08/10/23 09:23 36.8 C 69 19 104/81 98 05/04/24 09:21 70 15 98 08/10/23 09:00 57 L 15 98 08/10/23 09:00 36.6 C 08/10/23 08:51 70 17 100/71 98 08/10/23 08:45 55 L 17 99 08/10/23 08:45 100/71 08/10/23 08:30 109/77 08/10/23 08:30 62 20 98 08/10/23 08:27 57 L 08/10/23 08:21 36.6 C 55 L 15 109/66 99 08/10/23 08:15 109/66 08/10/23 08:15 58 L 17 100 08/10/23 08:06 36.6 C 69 14 105/68 100 08/10/23 08:00 105/68 08/10/23 08:00 74 16 100 08/10/23 07:47 36.6 C 70 16 125/72 100 08/10/23 07:46 56 L 14 100 08/10/23 07:45 125/72 08/10/23 07:44 58 L 16 100 08/10/23 07:30 57 L 16 100 Room Air 08/10/23 07:30 36.6 C 08/10/23 07:01 61 17 100 08/10/23 07:00 120/75 08/10/23 06:43 36.8 C 68 14 126/79 100 08/10/23 06:28 36.7 C 62 14 117/64 99 08/10/23 06:28 36.8 C 59 L 18 117/74 99 08/10/23 06:19 36.8 C 55 L 14 112/67 100 08/10/23 06:11 36.5 C 54 L 14 93/74 L 99 08/10/23 05:15 Room Air 08/10/23 05:15 100 08/10/23 05:02 74 98 08/10/23 04:57 75 98 08/10/23 04:52 72 98 08/10/23 04:47 76 98 O2 Del Method 08/10/23 16:01 08/10/23 16:00 08/10/23 15:59 08/10/23 15:01 08/10/23 15:00 08/10/23 14:59 08/10/23 14:00 08/10/23 13:00 08/10/23 13:00 08/10/23 12:09 08/10/23 12:01 08/10/23 12:00 08/10/23 11:58 08/10/23 11:45 08/10/23 11:30 08/10/23 11:15 08/10/23 11:12 08/10/23 11:00 08/10/23 11:00 08/10/23 11:00 08/10/23 10:46 08/10/23 10:45 08/10/23 10:31 08/10/23 10:31 08/10/23 10:30 08/10/23 10:29 08/10/23 10:13 08/10/23 10:00 08/10/23 10:00 08/10/23 09:45 08/10/23 09:30 08/10/23 09:30 08/10/23 09:23 08/10/23 09:21 08/10/23 09:00 08/10/23 09:00 08/10/23 08:51 08/10/23 08:45 08/10/23 08:45 08/10/23 08:30 08/10/23 08:30 08/10/23 08:27 08/10/23 08:21 08/10/23 08:15 08/10/23 08:15 08/10/23 08:06 08/10/23 08:00 08/10/23 08:00 08/10/23 07:47 08/10/23 07:46 08/10/23 07:45 08/10/23 07:44 08/10/23 07:30 08/10/23 07:30 08/10/23 07:01 08/10/23 07:00 08/10/23 06:43 08/10/23 06:28 08/10/23 06:28 08/10/23 06:19 08/10/23 06:11 08/10/23 05:15 08/10/23 05:15 Room Air 08/10/23 05:02 08/10/23 04:57 08/10/23 04:52 08/10/23 04:47 PG Care Time/CCT Total # of Minutes Spent Total Time Spent with Patient: Total time spent is greater than 50% in coordination of care (as documented) at patient's floor/unit and/or counseling patient: Coding Level of Care Code None
[2023-08-10 17:11] LABS: Hematocrit (blood only) 28.5 % (37.0-47.0); Hemoglobin 10.3 g/dl (12.0-16.0); Mean Corpuscular Hemoglobin 29.7 pg (25.0-34.0); Mean Corpuscular Hgb Conc 36.1 g/dL (32.0-36.0); Mean Corpuscular Volume 82.1 fL (80.0-100.0); Mean Platelet Volume 10.1 fL (9.4-12.4); Platelet Count 89 K/uL (130-400); RDW Coefficient of Variation 15.8 % (11.5-14.5); RDW Standard Deviation 46.3 fL (36.4-46.3); Red Blood Count 3.47 M/uL (4.20-5.40); White Blood Count 11.18 K/ul (4.8-10.8)
[2023-08-10] MEDS: bisacodyL 5 MG TABEC PO SCH (20:14)
[2023-08-10] MEDS: IBUPROFEN 600 MG TAB PO PRN (21:09)
--- NOTE | 2023-08-11 08:39 | Obstetrical Progress Note ---
Date of Service August 11, 2023 Assessment & Plan (1) DIC (disseminated intravascular coagulation): Day 2 status post for twin with recovery course complicated by hemorrhage with DIC. Vitals and blood counts stable this morning. Patient feeling well denying any concerns. Meeting all postdelivery goals. Will continue to monitor and can continue with routine care (2) delivery, delivered, current hospitalization: (3) hemorrhage: hemorrhage type: coagulation defects Qualified Code(s): O72.3 - coagulation defects Subjective Ambulation: ambulating normally Voiding: no voiding problems Passing Gas:: Yes Diet Tolerance:: regular diet Lochia:: Moderate Feeding Type:: breast feeding Day 2 status post section for twin . Recovery course has been complicated by DIC and ICU admission. Received equivalent of a massive transfusion protocol. Platelet counts have stabilized at 89 from a low of 30. Blood counts have also stabilized and CBC pending this morning. Reports minimal bleeding and overall feeling well. Physical Exam Constitutional WD/WN, vitals as above Respiratory normal respiratory effort; no respiratory distress and no labored breathing Gastrointestinal (Abdomen) Inspection/Auscultation: abdomen normal to inspection; abdomen not distended Percussion/Palpation: abdomen soft; abdomen nontender, no guarding and abdomen not rigid Incision clean, dry and intact. Genitourinary OB Exam Abdomen: + fundal height Fundus: + firm and + relation to umbilicus (Below); not tender or not boggy Results & Data Vital Signs (Past 12 Hours) Vital Signs Temp Pulse Resp BP Pulse Ox O2 Del Method 08/11/23 02:31 36.7 C 66 18 113/68 98 Room Air 08/10/23 23:15 37.3 C 72 18 121/77 97 Room Air
[2023-08-11] MEDS ORDERED: bisacodyL 10 MG SUPP PR PRN (08:44)
[2023-08-11 09:20] LABS: Hematocrit (blood only) 31.3 % (37.0-47.0); Hemoglobin 10.7 g/dl (12.0-16.0); Mean Corpuscular Hemoglobin 29.2 pg (25.0-34.0); Mean Corpuscular Hgb Conc 34.2 g/dL (32.0-36.0); Mean Corpuscular Volume 85.5 fL (80.0-100.0); Mean Platelet Volume 11.4 fL (9.4-12.4); Platelet Count 94 K/uL (130-400); RDW Standard Deviation 48.9 fL (36.4-46.3); Red Blood Count 3.66 M/uL (4.20-5.40); White Blood Count 10.61 K/ul (4.8-10.8)
[2023-08-11] MEDS: ACETAMINOPHEN 325 MG TAB PO PRN (17:54)
--- NOTE | 2023-08-12 06:43 | Obstetrical Progress Note ---
Date of Service August 12, 2023 Assessment & Plan (1) DIC (disseminated intravascular coagulation): Day 3 status post for twin with recovery course complicated by hemorrhage with DIC. Vitals and blood counts stable this morning. Patient feeling well denying any concerns. Meeting all postdelivery goals. Will continue to monitor and can continue with routine care. Stable for discharge if preferred (2) delivery, delivered, current hospitalization: (3) hemorrhage: hemorrhage type: coagulation defects Qualified Code(s): O72.3 - coagulation defects Subjective Ambulation: ambulating normally Voiding: no voiding problems Passing Gas:: Yes Diet Tolerance:: regular diet Lochia:: Moderate Feeding Type:: breast feeding Day 3 status post section for twin . Recovery course has been complicated by DIC and ICU admission. Received equivalent of a massive transfusion protocol. Platelet counts have stabilized at 94 from a low of 30. Blood counts have also stabilized hemoglobin at 10.7. Reports minimal bleeding and overall feeling well. Physical Exam Constitutional WD/WN, vitals as above Respiratory normal respiratory effort; no respiratory distress and no labored breathing Cardiovascular Extremities: no calf tenderness Gastrointestinal (Abdomen) Inspection/Auscultation: abdomen normal to inspection; abdomen not distended Percussion/Palpation: abdomen soft; abdomen nontender, no guarding and abdomen not rigid Incision clean, dry and intact. Genitourinary OB Exam Abdomen: + fundal height Fundus: + firm and + relation to umbilicus (Below); not tender or not boggy Results & Data Vital Signs (Past 12 Hours) Vital Signs Temp Pulse Resp BP Pulse Ox O2 Del Method 08/11/23 23:26 36.8 C 69 18 137/86 98 Room Air 08/11/23 19:53 36.8 C 75 18 127/82 98 Room Air
[2023-08-12] MEDS: MEASLES, MUMPS & RUBELLA VIRUS VACCINE (MMR) 0.5ML VIAL ONE (18:49)
--- NOTE | 2023-08-13 08:02 | Obstetrical Progress Note ---
Date of Service August 13, 2023 Assessment & Plan (1) delivery, delivered, current hospitalization: (2) hemorrhage: hemorrhage type: coagulation defects Qualified Code(s): O72.3 - coagulation defects (3) DIC (disseminated intravascular coagulation): Plan Doing well. All labs have resolved. Meeting d/c criteria and plan d/c home. INstructions given. she is concerned about her blood pressures, reviewed and only a couple of mildly elevated. She has cuff at home and wants to take a couple of times per day. discussed numbers to be concerned about. Also would like a visit in the office for a check in one week. She will make this appt. Subjective Ambulation: ambulating normally Voiding: no voiding problems Passing Gas:: Yes Diet Tolerance:: regular diet Lochia:: Small Feeding Type:: breast feeding Feeling well and ready for d/c. Breast feeding going better Physical Exam Constitutional WD/WN, vitals as above Neck trachea midline, no thyromegaly Respiratory normal respiratory effort, lungs clear to auscultation Cardiovascular RRR, no murmur, no edema Gastrointestinal (Abdomen) soft, nd, nt ff/nt at u Psychiatric A+Ox3, euthymic affect Results & Data Vital Signs (Past 12 Hours) Vital Signs Temp Pulse Resp BP Pulse Ox O2 Del Method 08/13/23 04:35 133/90 08/12/23 23:45 36.7 C 75 18 139/86 98 Room Air 08/12/23 20:45 Room Air 08/12/23 20:45 36.8 C 71 18 139/86 98 Room Air
--- NOTE | 2023-08-14 15:39 | Discharge Summary ---
Date of Service August 14, 2023 Admission HPI Per Admitting Provider Patient is a 37 yo female EDC [birth year] with Di/Di twin gestation who presents at 38 5/7 weeks for primary LTCS because of breech presentation in both twins. complicated as well by AMA status and GDM on insulin. testing has been reassuring. Admission Exam (Per Admitting) Constitutional WD/WN, vitals as above Respiratory normal respiratory effort, lungs clear to auscultation Cardiovascular RRR, no murmur, no edema Psychiatric A+Ox3, euthymic affect Genitourinary OB Exam Abdomen: + fundal height and + breech (twin A breech/ twin B transverse head RUQ) OB Exam Monitor Tracing: + external FHT monitor used, + external uterine monitor used, + category I and + normal FHT variability Discharge Data Consultations 08/09/23 05:40 Consult Anesthesiology Stat Procedures Performed Operation Date: 08/09/23 18:45 Actual Procedures p Exam under anesthesia, Curettage, ERNESTINE placement - Clau Desai MD, [facility] [place] Hospital Course (1) delivery, delivered, current hospitalization: (2) hemorrhage: (3) DIC (disseminated intravascular coagulation): Plan Doing well. All labs have resolved. Meeting d/c criteria and plan d/c home. INstructions given. she is concerned about her blood pressures, reviewed and only a couple of mildly elevated. She has cuff at home and wants to take a couple of times per day. discussed numbers to be concerned about. Also would like a visit in the office for a check in one week. She will make this appt. Discharge Plan Discharge Items Patient Disposition: Home - Self-Care Reason For Visit: Breech Presentation, Dichorioinic Diamonitic Twin Discharge Diagnosis: for twins hemorrhage with DIC--resolved Activity: Per Instructions section Non-emergency contact: Loading Supervisor Call non-emergency contact if: your pain is not controlled, your temperature is above 101, your wound has increased redness, your wound has increased drainage and your wound pain has increased Follow-up/Referrals: PCP,NO [Primary Care Provider] - Diet: Regular Addtl Attending Provider Instructions: ACTIVITY RECOMMENDATIONS: * Gradual return to full activity over the next 2-3 weeks. * No lifting - nothing heavier than baby over the next 2-3 weeks. * Do not engage in vigorous exercise, sexual activity or sports until cleared by your physician. * Do not drive or operate any motorized equipment until cleared by your physician. * You may shower/bathe daily. MEDICATIONS: For discomfort or pain, you may use Acetaminophen (Tylenol), Ibuprofen (Advil), or Naproxen (Aleve) following the package directions. For constipation you may use Colace following the package directions. BREAST CARE: If you are not breast feeding: * Wear a supportive bra 24 hours a day for one to two weeks. * Avoid stimulating your breasts and nipples as much as possible during the first few weeks after delivery. * When taking a shower, have the warm water hit your back, not breasts. * When your breasts feel full, apply ice packs. Usually three to four times a day helps ease the discomfort. * Take a mild pain medication (Tylenol / Motrin) when you are uncomfortable. If breast feeding: * Use breast milk to lubricate nipples. Lansinoh cream may be used for sore nipples. You do not need to remove cream prior to breast feeding. If using a different brand of cream, check the label for directions regarding removal of cream prior to nursing. * Wear a supportive bra. * If having problems with breasts or breast feeding, call a senior talent management consultant or your health care provider. EPISIOTOMY CARE: After delivery, if you have an episiotomy (stitches), the following steps will ease discomfort and aid healing. * For the first 24 hours after delivery, place ice packs next to your episiotomy to help reduce swelling. * After the first 24 hour-period, sitz baths, either portable or in the tub, are suggested. A shower with a shower arm sprayed over the episiotomy may be comforting. * Rosette care should be done after each voiding and bowel movement. Squirt warm water from a plastic bottle over the perineum (region of the body between the anus and urinary opening) and pat dry. * Use Dermoplast to ease discomfort. Shake container. [place] directly over the episiotomy. Place a Tucks on a clean sanitary pad next to your episiotomy. SPECIAL CARE INSTRUCTIONS: When you are discharged from the hospital, it is important for you to follow the instructions listed below: * During the first week at home, you should be able to care for yourself and your baby. In addition, the usual light household activities are encouraged. * Limit your activities to the way you feel. Do not try to clean the house or move furniture. Be sensible. * If you actively engage in sports and have done so up until the time of your delivery, you may resume these activities as soon as you feel able. This may take up to one month or even longer. Use good judgment. * Continue to take your vitamins for at least six weeks after the of your baby. * Your diet need not be limited unless you were on a special diet before your delivery. Breast-feeding mothers need around 2500 calories per day and at least 64-80 ounces of fluid per day (8 to 10 glasses). * You should eat foods from the four major food groups. Crash diets or fad diets are to be avoided. Eating lean meats, fresh fruits and vegetables, low-fat dairy products, high fiber foods and a regular exercise program, will help you get back to your pre- weight without putting your health at risk. * Constipation is sometimes a problem after delivery. Take a mild laxative as needed. If breast feeding, Milk of Magnesia is acceptable to use. You may use a suppository or Fleets enema if no episiotomy. * A daily shower or tub bath is suggested. Be sure to thoroughly and gently dry the perineum. * A bloody vaginal discharge will usually continue until around four weeks post . A small amount of bleeding may continue for as long as six weeks. Vaginal discharge changes from the bright red bleeding after delivery to pink then brownish and finally yellowish-pink before becoming white and disappearing. * Bleeding may increase with activity. Your first period may come in 4-8 weeks. If you are breast feeding, your period may be delayed even longer. * [place] (sex) can begin whenever both you and your partner feel comfortable and do not have any form of genital infection. It is recommended that you wait at least six weeks for internal and external healing to occur. If you have questions, please talk to your health care practitioner. A condom should be used to prevent infection and . * Foreplay, gentle intercourse and lubrication is very important the first s everal times to prevent pain. A water-based lubricant such as K-Y jelly or Astroglide may be used. * If you have RH negative blood and your baby is RH positive, you will receive RHOGAM by injection prior to discharge. The nurse will give you a card to keep with you that has the date and place that you received RHOGAM after delivery. * During your care, you had a Rubella screen done to check for the presence of rubella antibodies in your blood. If your test was negative, you will receive a Rubella vaccine prior to discharge. This vaccine may cause a fever, soreness at the injection site and flu-like symptoms. If these symptoms persist, notify your health care practitioner. is not advised for one month after a Rubella vaccine. * Verbalizes understanding of car seat law as reviewed with patient nursing. * Car Seat hand-out given and reviewed with patient by nursing. * Shaken baby information reviewed with patient by nursing. Call you doctor if: * Heavy bleeding (saturating several pads an hour) or passing clots the size of your fist. * A fever >101 degrees F (38.3 degrees C) on two occasions four hours apart and/or chills. * Unusual pain in the pelvic or vaginal areas. * "Baby Blues" lasting longer than two weeks. If you have any questions or concerns, call your health care practitioner at . FOLLOW UP VISIT: * Please call the office at to schedule a 6 week examination. It is important you keep this appointment. It is important for you to make arrangements for either yearly or twice yearly check-ups thereafter. Pending Studies at Discharge: No Stand-Alone Forms: My [facility], Smoking Cessation Medications and DC Order Prescriptions: New oxycodone-acetaminophen [Percocet] 5-325 mg Tablet 1 tab PO Q4H PRN (Reason: pain) Qty: 14 0RF Continued cholecalciferol (vitamin D3) 1 tab PO UD Rx Instructions: every other day aspirin 81 mg tablet,chewable 81 mg PO DAILY prenat.vits,jacqueline,fkg-deal-xnqur Tablet 1 tab PO DAILY (DME) Ketone Urine Test Strip See Rx Instructions .MEDSUPPLY Qty: 50 4RF Rx Instructions: As directed to check ketones in urine once a day in the morning (DME) OneTouch Verio test strips Strip See Rx Instructions .MEDSUPPLY Qty: 150 4RF Rx Instructions: check blood sugars 4 times a day (DME) blood-glucose meter [OneTouch Verio Reflect Meter] Misc See Rx Instructions miscellaneous .MEDSUPPLY Qty: 1 0RF Rx Instructions: As directed (DME) lancets [OneTouch Delica Plus Lancet] 33 gauge misc See Rx Instructions .MEDSUPPLY Qty: 150 4RF Rx Instructions: As directed check blood sugars 4 times a day (DME) pen needle, diabetic [BD Ultra-Fine Laine Pen Needle] 32 gauge x 5/32" needle See Rx Instructions miscellaneous .MEDSUPPLY Qty: 100 3RF Rx Instructions: As directed to use with insulin pens 4 times a day ferrous sulfate [Iron (ferrous sulfate)] 25 mg PO UD Rx Instructions: every other day calcium carbonate [Tums] 1 tab PO DIRECTED PRN (Reason: Acid Reflux) famotidine [Pepcid] 1 tab PO DAILY PRN (Reason: Acid Reflux) Novolin N FlexPen 100 unit/mL (3 mL) insulin pen 15 unit subcut QPM Rx Instructions: Inject 20units at bed time; increase as needed to keep fasting blood sugars below 95 mg/dl; TDD up to 40 units Discharge Orders: Discharge Order (Routine); Ordered 08/13/23 Ordered By: Sulma Zapata/Other Patient Handouts: Understanding Deep Vein Thrombosis, Understanding Depression Admission Data Admit Date/Time: 08/09/23 05:40 Attending Provider: Clau Desai Admit Provider: Clau Desai Primary Care Provider: PCP,NO Other Providers: Reuben Quinn Other Interventions: Discharge Summary Assessment (RN) Last Done: 08/13/23 12:05 Supervising Physician Co-Signing Physician Notes Agree with the note as above. Will give 2 g of calcium gluconate. Recheck CBC and fibrinogen level at noon. Patient will likely be stable for transfer back to OB department later today. Coding Level of Care Code 43815 IN/OBS DISCH 30 MIN/LESS Diagnoses delivery, delivered, current hospitalization O82 coagulation defect with hemorrhage O72.3 hemorrhage type: coagulation defects DIC (disseminated intravascular coagulation) D65
== END 2023-08-13 15:30 | disposition home or self-care (01) | DRG 788 ==
LOC: 4S1 05:40 → EDSTATUS 09:00 → 4E1 16:30 → 4S1 18:00 → 1E 08-10 05:27 → 4E1 08-10 20:59